=== PATIENT | male | born 1945 | race Caucasian/White ===

== ENCOUNTER → 2019-08-27 10:29 | Outpatient (BNVA) | payer MEDICARE, OTHER, SELFPAY | PROVIDERS: Family Provider Internal Medicine; PCP Internal Medicine; Visit Provider Family Medicine | DX: E78.5 Hyperlipidemia, unspecified (principal); I10 Essential (primary) hypertension; E11.9 Type 2 diabetes mellitus without complications; E03.9 Hypothyroidism, unspecified | CPT/HCPCS: 80053; 80061; 82044; 84443; 85025 ==

== ENCOUNTER → 2019-08-28 14:23 | Outpatient (BNVA) | payer MEDICARE, OTHER, SELFPAY | PROVIDERS: Family Provider Internal Medicine; PCP Internal Medicine; Visit Provider Family Medicine | DX: E78.5 Hyperlipidemia, unspecified (principal); I10 Essential (primary) hypertension; E11.9 Type 2 diabetes mellitus without complications; E03.9 Hypothyroidism, unspecified | CPT/HCPCS: 83036 ==

== ENCOUNTER → 2019-10-16 10:11 | Outpatient (BNVA) | payer MEDICARE, OTHER, SELFPAY | PROVIDERS: Family Provider Family Medicine; PCP Internal Medicine; Visit Provider Family Medicine | DX: I10 Essential (primary) hypertension (principal); N39.3 Stress incontinence (female) (male); R35.0 Frequency of micturition | CPT/HCPCS: 81000 ==

== ENCOUNTER → 2019-11-12 09:34 | Outpatient (BNVA) | payer MEDICARE, OTHER, SELFPAY | PROVIDERS: Family Provider Family Medicine; PCP Internal Medicine; Visit Provider Family Medicine | DX: I10 Essential (primary) hypertension (principal) | CPT/HCPCS: 80048 ==

== ENCOUNTER → 2020-02-26 10:37 | Outpatient (BNVA) | payer MEDICARE, OTHER, SELFPAY | PROVIDERS: Family Provider Family Medicine; PCP Internal Medicine; Visit Provider Family Medicine | DX: E78.5 Hyperlipidemia, unspecified (principal); E03.9 Hypothyroidism, unspecified; I10 Essential (primary) hypertension | CPT/HCPCS: 80053; 80061; 84443; 85025 ==

== ENCOUNTER → 2020-03-08 15:51 | Outpatient (BNVA) | payer MEDICARE, OTHER, SELFPAY | PROVIDERS: Family Provider Family Medicine; PCP Internal Medicine; Visit Provider Family Medicine | DX: Z20.828 Contact with and (suspected) exposure to other viral communicable diseases (principal) | CPT/HCPCS: 87635 ==

== ENCOUNTER → 2020-08-17 10:06 | Outpatient (BNVA) | payer MEDICARE, OTHER, SELFPAY | PROVIDERS: Family Provider Family Medicine; PCP Internal Medicine; Visit Provider Family Medicine | DX: E78.5 Hyperlipidemia, unspecified (principal); E03.9 Hypothyroidism, unspecified; I10 Essential (primary) hypertension; Z68.29 Body mass index [BMI] 29.0-29.9, adult | CPT/HCPCS: 80053; 80061; 81015; 82043; 83721; 84443; 85025 ==

== ENCOUNTER → 2020-10-20 10:59 | Outpatient (BNVA) | payer MEDICARE, OTHER, SELFPAY | PROVIDERS: Family Provider Family Medicine; PCP Family Medicine; Visit Provider Family Medicine | DX: E78.5 Hyperlipidemia, unspecified (principal) | CPT/HCPCS: 80053 ==

== ENCOUNTER → 2020-12-01 11:27 | Outpatient (BNVA) | payer MEDICARE, OTHER, SELFPAY | PROVIDERS: Family Provider Family Medicine; PCP Family Medicine; Visit Provider Family Medicine | DX: E78.5 Hyperlipidemia, unspecified (principal); I10 Essential (primary) hypertension | CPT/HCPCS: 80061 ==

== ENCOUNTER → 2021-02-14 10:08 | Outpatient (BNVA) | payer MEDICARE, OTHER, SELFPAY | PROVIDERS: Family Provider Family Medicine; PCP Family Medicine; Visit Provider Family Medicine | DX: E03.9 Hypothyroidism, unspecified (principal); I10 Essential (primary) hypertension | CPT/HCPCS: 80053; 84439; 84443; 85025 ==

== ENCOUNTER → 2021-08-08 08:47 | Outpatient (BNVA) | payer MEDICARE, OTHER, SELFPAY | PROVIDERS: Family Provider Family Medicine; PCP Family Medicine; Visit Provider Family Medicine | DX: I10 Essential (primary) hypertension (principal); E03.9 Hypothyroidism, unspecified; R35.1 Nocturia; E78.5 Hyperlipidemia, unspecified; M16.0 Bilateral primary osteoarthritis of hip; D18.01 Hemangioma of skin and subcutaneous tissue | CPT/HCPCS: 80053; 84153; 84443 ==

== ENCOUNTER → 2021-08-10 10:50 | Outpatient (BNVA) | payer MEDICARE, OTHER, SELFPAY | PROVIDERS: Family Provider Family Medicine; PCP Family Medicine; Visit Provider Family Medicine | DX: I10 Essential (primary) hypertension (principal); R73.9 Hyperglycemia, unspecified; E03.9 Hypothyroidism, unspecified; R35.1 Nocturia; E78.5 Hyperlipidemia, unspecified; M16.0 Bilateral primary osteoarthritis of hip | CPT/HCPCS: 83036 ==

== ENCOUNTER → 2022-03-08 13:38 | Outpatient (BNVA) | payer MEDICARE, OTHER, SELFPAY | PROVIDERS: Family Provider Family Medicine; PCP Family Medicine; Visit Provider Family Medicine | DX: I10 Essential (primary) hypertension (principal); E78.5 Hyperlipidemia, unspecified; R73.9 Hyperglycemia, unspecified; R35.1 Nocturia; K50.90 Crohn's disease, unspecified, without complications | CPT/HCPCS: 80053; 80061; 83036; 84153; 84443; 85025 ==

== ENCOUNTER → 2022-07-03 10:39 | Outpatient (BNVA) | payer MEDICARE, OTHER, SELFPAY | PROVIDERS: Family Provider Family Medicine; PCP Family Medicine; Visit Provider Surgery | DX: K62.5 Hemorrhage of anus and rectum (principal); K50.90 Crohn's disease, unspecified, without complications; K52.9 Noninfective gastroenteritis and colitis, unspecified | CPT/HCPCS: 99203 ==

== ENCOUNTER 2022-08-14 14:20 | Emergency (ER) | payer MEDICARE, OTHER, SELFPAY ==
[2022-08-14 14:58] VITALS: BP 174/94; PULSE 70; RESP 20; TEMP 36.5; O2SAT 98; BMI 27.2
--- NOTE | 2022-08-14 15:01 | ECG_ITS ---
[facility] Test Date: 2022-08-14 Pat Name: Esequiel Kinney Department: Room: Gender: Male Erisa Attorney: : 1945 Requested By: Sulaiman Pike Order Number: [id number] Reuben MD: Patel Montilla M.D. Measurements Intervals [place] Rate: 67 P: 55 CA: 153 QRS: 42 QRSD: 106 T: 34 QT: 415 QTc: 441 Interpretive Statements SINUS RHYTHM NONSPECIFIC T-WAVE ABNORMALITY No previous ECG available for comparison Electronically Signed On 08-14-2022 17:33:09 TRACK HELPER by Patel Montilla M.D. [id number]
[2022-08-14 16:19] VITALS: BP 159/85; PULSE 72; RESP 20; O2SAT 98
--- NOTE | 2022-08-14 18:12 | USR_ITS ---
PROCEDURE INFORMATION: Exam: US Scrotum Exam date and time: 08/14/2022 6:41 PM Age: 77 years old Clinical indication: Other: Patient has a nasty red groin rash, which he says he gets about three times per year. He states that he has noticed painless bilateral scrotal swelling x 2 weeks. TECHNIQUE: Imaging protocol: Real-time ultrasound of the scrotum and contents with color Doppler and image documentation. COMPARISON: No relevant prior studies available. FINDINGS: Right testicle: 3.3 x 2.3 x 2.8 cm with normal blood flow. Left testicle: 3.2 x 2.4 x 2.9 cm with normal blood flow. Epididymides: Normal. Scrotum/soft tissues: Small bilateral hydroceles. Small left varicocele. Suspected skin thickening or edema. US/US scrotum [id number] IMPRESSION: 1. Normal testicles. 2. Small hydroceles. 3. Small left varicocele.
--- NOTE | 2022-08-14 18:13 | XRR_ITS ---
PROCEDURE INFORMATION: Exam: XR Chest Exam date and time: 08/14/2022 6:31 PM Age: 77 years old Clinical indication: Patient HX: Shortness of breath; Chest pain; Additional info: SOB TECHNIQUE: Imaging protocol: Radiologic exam of the chest. Views: 1 view. COMPARISON: CR XR chest 2V* [id number] 04/08/2017 1:04 PM FINDINGS: Lungs: Unremarkable. No consolidation. Pleural spaces: Unremarkable. No pleural effusion. No pneumothorax. Heart/Mediastinum: Unremarkable. No cardiomegaly. Bones/joints: Unremarkable. Soft tissues: Bilateral skin folds. XR/XR chest 1V portable [id number] IMPRESSION: No acute findings.
[2022-08-14 18:24] LABS: Basophils % 0.4 %; Eosinophils % 0.2 %; Hematocrit 34.4 % (42.0-52.0); Hemoglobin 11.1 g/dL (11.7-16.6); Lymphocytes # 2.7 10^3/uL (0.8-4.8); Lymphocytes % 28.1 %; Mean Corpuscular HGB Conc 32.3 g/dL (30.0-36.0); Mean Corpuscular Hemoglobin 26.7 pg (28.0-34.0); Mean Corpuscular Volume 82.9 fl (80-94); Mean Platelet Volume 8.6 fL (7.4-10.4); Monocytes # 0.4 10^3/uL (0.2-0.9); Monocytes % 4.6 %; Neutrophils # 6.27 10^3/uL (1.8-7.7); Neutrophils % 66.4 %; Nucleated Red Blood Cells % 0 %; Platelet Count 298 10^3/cmm (130-400); Red Blood Count 4.15 10^6/uL (4.1-5.3); Red Cell Distribution Width 16.7 % (12.1-15.1); White Blood Count 9.5 10^3/uL (4.0-10.0)
--- NOTE | 2022-08-14 18:24 | W.ED.GENADLT ---
HPI - General Adult General: Chief complaint: General Medical Stated complaint: states fluid retention/Lambert sent Time Seen by Provider: 08/14/22 18:02 Source: patient Mode of arrival: ambulatory Limitations: no limitations History of Present Illness: 70-year-old male states that he has been having fluid retention in his legs he is also had swelling to his penis and scrotum with fluid states he has been having over the last few weeks he states has been having some shortness of breath he seen his PCP today with sent him here for evaluation of new onset CHF he states he used to take a water pill in the past but no longer does. He denies any pain denies any fevers. Associated symptoms: Reports dyspnea; Deny chest pain, headache(s), nausea, rash or vomiting Review of Systems Const: Denies: fever(s), chills, body aches or change in appetite Eyes: Denies: blurry vision or eye discomfort ENMT: Denies: throat pain or dental pain Card: Denies: chest pain Resp: Reports: dyspnea GI: Denies: abdominal pain, nausea, vomiting or diarrhea : Denies: dysuria Musc: Reports: extremity swelling Skin/Breast: Denies: rash Neuro: Denies: headache(s) Psych: Denies: depression Ed/Lymph: Denies: easy bruising All/Imm: Denies: urticaria PFSH ED PFSH: Medical History Crohn's disease Dyslipidemia Essential (primary) hypertension Gout History of amputation of toe Hypothyroid Mitral valve prolapse, nonrheumatic DRISS (obstructive sleep apnea) Primary osteoarthritis of both hips Surgical History H/O hernia repair History of elbow surgery History of tonsillectomy Hx of colonoscopy with polypectomy Family History Other CAD (coronary artery disease) Cancer Social History Smoking and tobacco status: never smoked Alcohol intake: never Physical Exam Const: COMMON NORMALS: no acute distress, patient oriented x3 and healthy appearing HENMT: COMMON NORMALS: normocephalic and atraumatic HEAD & SCALP: normocephalic and atraumatic Eye: COMMON NORMALS: Equal, round and reactive pupils present and EOMs intact bilaterally PUPIL: Yes Equal, round and reactive pupils present Neck/C-Spine: COMMON NORMALS: full ROM and supple Chest: COMMONS NORMALS: normal inspection of the chest and normal palpation of entire chest wall Resp: COMMON NORMALS: normal respiratory effort, No retractions, No use of accessory muscles and clear to auscultation bilaterally AUSCULTATION: clear to auscultation bilaterally Cardio: COMMON NORMALS: regular rate, regular rhythm and No murmurs present (Cardio) RATE: regular rate RHYTHM: regular rhythm GI: COMMON NORMALS: Normal to inspection, nondistended, normoactive bowel sounds present, Soft to palpation, non-tender and no masses PALPATION: Yes Soft to palpation : OTHER: scrotal and penile swelling and edema Extremity: COMMON NORMALS: full ROM NARRATIVE EXTREMITY EXAM: 2+ edema to le Neuro: COMMON NORMALS: patient oriented x3, moves all extremities and no focal motor deficits Psych: COMMON NORMALS: mental status grossly normal, Normal thought process present and cooperative THOUGHT PROCESS: Normal thought process present Skin: COMMON NORMALS: no rashes or lesions noted and no wounds GENERAL SKIN EXAM: no rashes or lesions noted Course Vital Signs: Vital signs: Vital Signs Temperature 97.7 F 08/14/22 14:58 Pulse Rate 72 08/14/22 16:19 Respiratory Rate 20 H 08/14/22 16:19 Blood Pressure 159/85 08/14/22 16:19 Pulse Oximetry 98 08/14/22 16:19 Oxygen Delivery Me thod 08/14/22 16:19 [facility] - General Adult Medical Decision Making Patient presents with lower extremity edema his BNP is elevated he has no signs of pulm edema he is in no respiratory distress given Lasix here he is diuresing well here spoke to him and his PCP has an appoint with her next Saturday we will start him on Lasix and he is to follow-up Saturday scheduled he is return if he has any worsening he understands and agrees to plan. Lab Data 08/14/22 17:41 08/14/22 17:41 Radiology Impressions Scrotum Ultrasound 08/14/22 18:12 IMPRESSION: 1. Normal testicles. 2. Small hydroceles. 3. Small left varicocele. Chest X-Ray 08/14/22 18:13 IMPRESSION: No acute findings. Laboratory Results WBC 9.5 10^3/uL (4.0-10.0) 08/14/22 17: RBC 4.15 10^6/uL (4.1-5.3) 08/14/22 17:41 Hgb 11.1 g/dL (11.7-16.6) L 08/14/22 17:41 Hct 34.4 % (42.0-52.0) L 08/14/22 17:41 MCV 82.9 fl (80-94) 08/14/22 17:41 MCH 26.7 pg (28.0-34.0) L 08/14/22 17: MCHC 32.3 g/dL (30.0-36.0) 08/14/22 17:41 RDW 16.7 % (12.1-15.1) H 08/14/22 17:41 Plt Count 298 10^3/cmm (130-400) 08/14/22 17:41 MPV 8.6 fL (7.4-10.4) 08/14/22 17:41 Neut % (Auto) 66.4 % 08/14/22 17:41 Lymph % (Auto) 28.1 % 08/14/22 17:41 Kendall % (Auto) 4.6 % 08/14/22 17:41 Eos % (Auto) 0.2 % 08/14/22 17:41 Baso % (Auto) 0.4 % 08/14/22 17:41 Neut # (Auto) 6.27 10^3/uL (1.8-7.7) 08/14/22 17:41 Lymph # (Auto) 2.7 10^3/uL (0.8-4.8) 08/14/22 17:41 Kendall # (Auto) 0.4 10^3/uL (0.2-0.9) 08/14/22 17: Eos # (Auto) 0.0 10^3/uL (0.0-0.8) 08/14/22 17:41 Baso # (Auto) 0.0 10^3/uL (0.0-0.1) 08/14/22 17:41 Nucleated RBC % (auto) 0 % 08/14/22 17:41 Nucleated RBCs # 0.0 /100WBC 08/14/22 17:41 PT 15.00 SECONDS (12.1-14.9) H 08/14/22 17:41 INR 1.14 (0.8-1.2) 08/14/22 17:41 Sodium 139 mmol/L (136-145) 08/14/22 17:41 Potassium 3.9 mmol/L (3.5-5.1) 08/14/22 17:41 Chloride 102 mmol/L (98-107) 08/14/22 17:41 Carbon Dioxide 24 mmol/L (22-29) 08/14/22 17:41 Anion Gap 16.9 (5-19) 08/14/22 17:41 BUN 9 mg/dL (8-23) 08/14/22 17:41 Creatinine 0.7 mg/dL (0.7-1.2) 08/14/22 17:41 GFR Calculation Not Reportable 08/14/22 17:41 Glucose 119 mg/dL (65-115) H 08/14/22 17:41 Calculated Osmolality 288 mOsm/kg (285-295) 08/14/22 17:41 Calcium 9.9 mg/dL (8.5-10.5) 08/14/22 17:41 Total Bilirubin 1.0 mg/dL (0.15-1.2) 08/14/22 17:41 AST 28 U/L (0-40) 08/14/22 17:41 ALT 22 U/L (0-41) 08/14/22 17:41 Alkaline Phosphatase 96 U/L (40-130) 08/14/22 17:41 NT-Pro-B Natriuret Pep 1342 pg/mL (0-450) H 08/14/22 17:41 Total Protein 7.4 g/dL (6.6-8.7) 08/14/22 17:41 Albumin 3.6 g/dL (3.5-5.2) 08/14/22 17:41 Globulin 3.8 g/dL (1.3-4.6) 08/14/22 17:41 EKG Data EKG 1: I personally reviewed and interpreted this EKG as follows: EKG interpretation date: 08/14/22 EKG interpretation time: 19:26 Interpretation: nsr hr [address] or t wave abnormalities qrs 106 qtc 427 Computer generated interpretation: Scrotum Ultrasound 08/14/22 18:12 IMPRESSION: 1. Normal testicles. 2. Small hydroceles. 3. Small left varicocele. Chest X-Ray 08/14/22 18:13 IMPRESSION: No acute findings. Discharge Plan Discharge Patient Disposition: Home Clinical Impression: Bilateral lower extremity edema, Scrotal swelling Condition: Stable Prescriptions: New Lasix 40 mg tablet 40 mg PO DAILY Qty: 30 0RF No Action acetaminophen [Tylenol Extra Strength] 500 mg tablet 500 mg PO Q6H PRN mesalamine [Delzicol] 400 mg capsule (with del rel tablets) 800 mg PO BID Qty: 360 1RF meloxicam 7.5 mg tablet 7.5 mg PO DAILY Qty: 90 1RF rosuvastatin [Crestor] 40 mg tablet 40 mg PO DAILY 90 Days Qty: 90 1RF lisinopril 30 mg tablet 30 mg PO BID Qty: 180 1RF metoprolol succinate 100 mg tablet extended release 24 hr See Rx Instructions .ROUTE .COMPLEX Qty: 90 1RF Dose Instruction: TAKE 1 TABLET DAILY Rx Instructions: TAKE 1 TABLET DAILY allopurinol 300 mg tablet 300 mg PO DAILY Qty: 90 3RF fenofibrate nanocrystallized 145 mg tablet 145 mg PO DAILY Qty: 90 1RF levothyroxine 50 mcg capsule 50 mcg PO DAILY Qty: 90 1RF nystatin 100,000 unit/gram powder 1 applic TOPICAL DAILY Qty: 3 2RF amlodipine 5 mg tablet 5 mg PO BID Qty: 180 1RF Discharge Orders: Discharge ED (Routine); Ordered 08/14/22 Ordered By: Christina Kendall Referrals: Blanka Hu DO [Primary Care Provider] - 1-3 days Discharge Diet: Advance as tolerated Discharge Activity: Resume usual activity Patient Instructions: Leg Edema (ED) Coding Level of Care Code ED Casing In Line Setter for Marko Ravi
--- NOTE | 2022-08-14 18:27 | PC.NURSE ---
PT PLACED ON CONTINUOUS SPO2, NIBP, AND CM.
[2022-08-14] MEDS: FUROsemide 10 mg/mL SDV 10mL 60 MG IVP (18:28)
[2022-08-14 18:35] LABS: INR 1.14 (0.8-1.2)
[2022-08-14 18:52] LABS: Alanine Aminotransferase 22 U/L (0-41); Albumin Level 3.6 g/dL (3.5-5.2); Alkaline Phosphatase 96 U/L (40-130); Anion Gap 16.9 (5-19); Aspartate Amino Transferase 28 U/L (0-40); Blood Urea Nitrogen 9 mg/dL (8-23); Calcium 9.9 mg/dL (8.5-10.5); Carbon Dioxide 24 mmol/L (22-29); Chloride 102 mmol/L (98-107); Globulin 3.8 g/dL (1.3-4.6); Glucose 119 mg/dL (65-115); NT Pro B Type Natriuretic Pept 1342 pg/mL (0-450); Osmolality Calculated 288 mOsm/kg (285-295); Potassium 3.9 mmol/L (3.5-5.1); Sodium 139 mmol/L (136-145); Total Protein 7.4 g/dL (6.6-8.7)
--- NOTE | 2022-08-14 18:56 | PC.NURSE ---
REPORT GIVEN TO NINO Connolly RN ASSUMED CARE.
--- NOTE | 2022-08-14 19:26 | ECG_ITS ---
[facility] Test Date: 2022-08-14 Pat Name: Esequiel Kinney Department: Room: Gender: Male Teaching Specialists: : 1945 Requested By: Christina Kendall Order Number: [id number] Reuben MD: Patel Montilla M.D. Measurements Intervals [place] Rate: 68 P: 46 WV: 134 QRS: 20 QRSD: 106 T: 4 QT: 410 QTc: 438 Interpretive Statements SINUS RHYTHM WITH OCCASIONAL SUPRAVENTRICULAR PREMATURE COMPLEXES NONSPECIFIC T-WAVE ABNORMALITY Compared to ECG 08/14/2022 14:57:36 No significant changes Electronically Signed On 08-15-2022 10:27:12 SHEET METAL APPRENTICE by Patel Montilla M.D. [email or web address]
[2022-08-14 20:14] VITALS: BP 154/97; PULSE 68; RESP 19; O2SAT 100
== END 2022-08-14 20:15 | disposition home or self-care (01) ==
PROVIDERS: Emergency Provider Emergency Medicine; PCP Family Medicine
DX: R60.0 Localized edema (principal); N50.89 Other specified disorders of the male genital organs; N43.3 Hydrocele, unspecified; I86.1 Scrotal varices; E78.5 Hyperlipidemia, unspecified; I10 Essential (primary) hypertension
CPT/HCPCS: 71045; 76870; 80053; 83880; 85025; 85610; 93005; 96374; 99285; J1940

== ENCOUNTER → 2022-08-27 12:35 | Outpatient (BNVA) | payer MEDICARE, OTHER, SELFPAY | PROVIDERS: PCP Family Medicine; Visit Provider Family Medicine | DX: R60.0 Localized edema (principal) | CPT/HCPCS: 80053; 85025 ==

== ENCOUNTER 2022-09-21 14:27 | Outpatient (CLI) | payer MEDICARE, OTHER, SELFPAY ==
--- NOTE | 2022-09-21 15:00 | USCV_ITS ---
Esequiel Kinney Age: 77 Gender: M : 1945 Exam Date: 09/21/2022 15:03 Ordering Phys: Blanka Hu DO Technologist: Exam Location: [facility] – [place], [place] Indication: pedal edema BP: 156 / 64 HR: 70 Rhythm: Sinus Technical Quality: MEASUREMENTS (Male / Female) Normal Values 2D ECHO LV Diastolic Diameter PLAX 4.7 cm 4.2 - 5.9 / 3.9 - 5.3 cm LV Systolic Diameter PLAX 3.0 cm IVS Diastolic Thickness 1.2 cm 0.6 - 1.0 / 0.6 - 0.9 cm IVS Systolic Thickness 1.7 cm LVPW Diastolic Thickness 1.4 cm 0.6 - 1.0 / 0.6 - 0.9 cm LVPW Systolic Thickness 1.6 cm LVOT Diameter 2.1 cm LV Ejection Fraction 2D Teich 65.4 % LV Ejection Fraction MOD 2C 77.5 % LV Ejection Fraction 2C AL 77.2 % LA Diameter 4.0 cm Aorta at Sinotubular Diameter 3.0 cm IVC Diameter 1.1 cm M-MODE Aortic Annulus Diameter 3.6 cm LA Ao Ratio MM 1.3 MV E Point Septal Separation 1.3 cm DOPPLER AV Peak Velocity 206.0 cm/s LVOT Peak Velocity 121.0 cm/s AV Area Cont Eq vti 2.4 cm squared AV Area Cont Eq pk 2.1 cm squared MV Area PHT 5.0 cm squared Mitral E to A Ratio 1.2 MV E' Velocity 61.5 cm/s Mitral E to MV E' Ratio 12.2 Mitral E to LV E' Lateral Ratio 10.2 Mitral E to LV E' Septal Ratio 15.2 TR Peak Velocity 297.0 cm/s TR Peak Gradient 35.3 mmHg TV Peak E Velocity 117.0 cm/s Right Atrial Pressure 3.0 mmHg Pulmonary Artery Systolic Pressu 38.3 mmHg RV Acceleration Time 0.1 s FINDINGS Left Ventricle Normal left ventricular size and systolic function, EF 77 %. Mild left ventricular hypertrophy. No regional wall motion abnormalities. Grade III/IV diastolic dysfunction (restrictive filling pattern), severely elevated filling pressures. Right Ventricle The right ventricle is normal in size and function. Right Atrium The right atrium is normal in size. Left Atrium The left atrium is normal in size. Mitral Valve Thickened mitral valve. Aortic Valve Thickened aortic valve. Aortic valve sclerosis. Tricuspid Valve Mild tricuspid valve regurgitation. Estimated pulmonary artery peak systolic pressure 38 mmHg Pulmonic Valve No gross abnormalities noted Pericardium Normal pericardium without effusion. Aorta Normal ascending aorta dimension. IVC The inferior vena cava appears normal. CONCLUSIONS Normal left ventricular size and systolic function, EF 77 %. Mild left ventricular hypertrophy. No regional wall motion abnormalities. Grade III/IV diastolic dysfunction (restrictive filling pattern), severely elevated filling pressures. Mild mitral and tricuspid regurgitation Thickened mitral valve. Features of aortic valve sclerosis There is no pericardial effusion. There are no intracardiac masses. Compared to the study from 04/06/2019 the left ventricular diastolic dysfunction appears to be new Dr Sumaya Figueroa MD FACC (Electronically Signed) Final Date: 21 September 2022 16:50 S
== END 2022-09-21 14:28 | disposition home or self-care (01) ==
LOC: RAD 14:28
PROVIDERS: PCP Family Medicine; Visit Provider Family Medicine
DX: R60.0 Localized edema (principal); I08.3 Combined rheumatic disorders of mitral, aortic and tricuspid valves
CPT/HCPCS: 93306

== ENCOUNTER → 2022-09-25 11:52 | Outpatient (BNVA) | payer MEDICARE, OTHER, SELFPAY | PROVIDERS: PCP Family Medicine; Visit Provider Family Medicine | DX: I50.30 Unspecified diastolic (congestive) heart failure (principal) | CPT/HCPCS: 80048 ==

== ENCOUNTER → 2022-10-03 09:31 | Outpatient (BNVA) | payer MEDICARE, OTHER, SELFPAY | PROVIDERS: PCP Family Medicine; Visit Provider Family Medicine | DX: E87.6 Hypokalemia (principal) | CPT/HCPCS: 80048 ==

== ENCOUNTER 2022-10-17 12:05 | Inpatient (IN) | payer MEDICARE, OTHER, SELFPAY ==
[2022-10-17] VITALS (9 sets, daily range): BP systolic 102–126; BP diastolic 62–80; PULSE 97–105; RESP 18; TEMP 36.6; O2SAT 96–100; BMI 24.4
--- NOTE | 2022-10-17 13:26 | XR_ITS ---
WS: [id number] Exam: XR chest 1V portable [id number] Date/Time of Exam: 10/17/2022 1:39 PM Reason For Exam: edema Comparison 08/14/2022. The lungs are clear and fully expanded. No pleural effusions. Normal cardiomediastinal silhouette. [place] structures are intact. Degenerative changes of the T-spine and left shoulder. XR/XR chest 1V portable [id number] IMPRESSION: 1. No acute cardiopulmonary finding.
--- NOTE | 2022-10-17 13:29 | ED_ITS ---
HPI - Extremity Problem General: Chief complaint: Extremity Problem,Nontraumatic Stated complaint: PITTING EDEMA/ PAIN Time Seen by Provider: 10/17/22 12:56 Source: patient and family Mode of arrival: EMS Limitations: no limitations History of Present Illness: This patient returns to the emergency department because of lower extremity edema. He states this is similar to episode he had approximately a month ago in which he was given additional Lasix and his symptoms resolved. He denies any chest pain. He states that because of the edema he feels like he has more discomfort and pain in his lower extremities. He denies any fevers or chills. He apparently lives alone and his daughter who is here with him has been coming more frequently over the past couple weeks because his ability to do his ADLs has been compromised due to his lower extremity edema. He wears a depends and states that his depends of had significant amount of urine in them and has been taking the Lasix as prescribed. He also relates that he lost his approximately a month or so ago but he does not feel depressed or sad. He states his appetite has decreased due to his inability to get up and fix his meals because of his edema. MD Complaint: extremity swelling Associated symptoms: Deny chest pain, fever(s) or rash Review of Systems Const: Reports: fatigue; Denies: fever(s) or chills Eyes: Denies: change in vision ENMT: Denies: throat pain, odynophagia, nasal discharge or nasal congestion Card: Reports: edema; Denies: chest pain or palpitations Resp: Denies: dyspnea, productive cough or non-productive cough GI: Denies: abdominal pain, nausea or vomiting : Denies: flank pain, difficulty urinating or dysuria Musc: Reports: extremity pain and extremity swelling; Denies: neck pain or back pain Skin/Breast: Denies: rash or pruritus Neuro: Denies: headache(s), numbness in extremities or weakness in extremities PFSH ED PFSH: Medical History Crohn's disease Dyslipidemia Essential (primary) hypertension Gout History of amputation of toe Hypothyroid Mitral valve prolapse, nonrheumatic DRISS (obstructive sleep apnea) Primary osteoarthritis of both hips Surgical History H/O hernia repair History of elbow surgery History of tonsillectomy Hx of colonoscopy with polypectomy Family History Other CAD (coronary artery disease) Cancer Social History Smoking and tobacco status: never smoked Alcohol intake: never Substance/Drug Use: never Physical Exam Narrative: EXAM NARRATIVE: The patient is alert. He appears somewhat pale but in no acute distress and able to answer questions in an appropriate goal-directed fashion. Const: COMMON NORMALS: no acute distress, patient oriented x3 and no limitations NUTRITIONAL APPEARANCE: thin ORIENTATION/CONSCIOUSNESS: Yes awake HENMT: COMMON NORMALS: normocephalic, Normal nasal mucous membranes and turbinates present, moist oral mucous membranes and oropharynx normal HEAD & SCALP: normocephalic FACE & SINUS: normal facial exam NOSE: Normal nasal mucous membranes and turbinates present Eye: COMMON NORMALS: Equal, round and reactive pupils present, EOMs intact bilaterally and conjunctivae normal CONJUNCTIVA: Yes conjunctivae normal PUPIL: Yes Equal, round and reactive pupils present Neck/C-Spine: COMMON NORMALS: full ROM, no lymphadenopathy, no JVD and Thyroid normal THYROID: Thyroid normal Chest: COMMONS NORMALS: normal inspection of the chest and normal palpation of entire chest wall Resp: COMMON NORMALS: normal respiratory effort and No retractions AUSCULTATION: diminished lung sounds Cardio: COMMON NORMALS: no JVD, regular rate, regular rhythm, No murmurs present (Cardio) and Peripheral pulses 2+ throughout RATE: regular rate RHYTHM: regular rhythm PERIPHERAL PULSES: Peripheral pulses 2+ throughout GI: COMMON NORMALS: Normal to inspection, nondistended, normoactive bowel sounds present, Soft to palpation and non-tender PALPATION: Yes Soft to palpation : SCROTUM: Yes other (Scrotal edema) Back/Pelvis: COMMON NORMALS: thoracic and lumbar spine normal to inspection, no thoracic nor lumbar tenderness and thoraco-lumbar ROM normal Extremity: COMMON NORMALS: no calf tenderness NARRATIVE EXTREMITY EXAM: Bilateral pitting edema up to mid to upper thigh. No erythema, skin rashes etc. no deformity. No joint enlargement. Neuro: COMMON NORMALS: patient oriented x3, moves all extremities and no focal motor deficits CRANIAL NERVES: Yes CN normal except as noted Course Reevaluation(s): Reevaluation #1: The patient remains clinically stable without any changes in his condition. I discussed current findings with him and also revisited all his history. He states he has been taking the medications as prescribed. He again denies any black tarry stools, blood in his stools etc. Time: 14:45 Consultations: Consultation #1: Discussed current findings with Dr. Medina attending hospitalist who agreed to admit the patient for further work-up and consultation as indicated. Time: 14:45 Vital Signs: Vital signs: Vital Signs Pulse Rate 103 H 10/17/22 13:53 Blood Pressure 111/67 10/17/22 13:53 Pulse Oximetry 99 10/17/22 13:53 Oxygen Delivery Me thod Nasal Cannula 10/17/22 13:53 Oxygen Flow Rate 2 10/17/22 13:53 MDM - Extremity (Nontraumatic) Medical Decision Making This patient with history of lower extremity edema noted in a prior emergency department visit and with also prior echocardiogram which revealed some jarrett stolic dysfunction presents to our emergency department with increasing lower extremity edema and fatigue. His clinical examination confirmed pitting edema of the bilateral lower extremities and scrotum. He did not have any evidence of respiratory distress or other significant cardiopulmonary clinical findings at this time. Subsequently work-up was engaged to evaluate kidney function, cardiac biomarkers etc. Of note is that his creatinine was significant elevated today versus prior creatinines available within this record. He also had evidence of worsening anemia without clear etiology. The patient has acute kidney injury of unclear etiology although he does take a number of medications which could be a contributing factor. His potassium is 5.2 and his EKG does not reveal any concerning changes at this time. The patient will be admitted to this facility for continued work-up consultation is indicated and treatment. Medical Records I reviewed the patient's medical records. Prior laboratories reviewed revealed a normal creatinine earlier in September. Lab Data I reviewed the patient's lab results. 10/17/22 13:09 10/17/22 13:09 Radiology Impressions Chest X-Ray 10/17/22 13:26 IMPRESSION: 1. No acute cardiopulmonary finding. Laboratory Results WBC 11.2 10^3/uL (4.0-10.0) H 10/17/22 13:09 RBC 2.95 10^6/uL (4.1-5.3) L 10/17/22 13:09 Hgb 7.0 g/dL (11.7-16.6) L 10/17/22 13:09 Hct 22.7 % (42.0-52.0) L 10/17/22 13:09 MCV 76.9 fl (80-94) L 10/17/22 13:09 MCH 23.7 pg (28.0-34.0) L 10/17/22 13:09 MCHC 30.8 g/dL (30.0-36.0) 10/17/22 13:09 RDW 17.8 % (12.1-15.1) H 10/17/22 13:09 Plt Count 167 10^3/cmm (130-400) 10/17/22 13:09 MPV 8.6 fL (7.4-10.4) 10/17/22 13:09 Neut % (Auto) 90.4 % 10/17/22 13:09 Lymph % (Auto) 3.7 % 10/17/22 13:09 [place] % (Auto) 4.6 % 10/17/22 13:09 Eos % (Auto) 0.0 % 10/17/22 13:09 Baso % (Auto) 0.1 % 10/17/22 13:09 Neut # (Auto) 10.10 10^3/uL (1.8-7.7) H 10/17/22 13:09 Lymph # (Auto) 0.4 10^3/uL (0.8-4.8) L 10/17/22 13:09 [place] # (Auto) 0.5 10^3/uL (0.2-0.9) 10/17/22 13:09 Eos # (Auto) 0.0 10^3/uL (0.0-0.8) 10/17/22 13:09 Baso # (Auto) 0.0 10^3/uL (0.0-0.1) 10/17/22 13:09 Nucleated RBC % (auto) 0 % 10/17/22 13:09 Nucleated RBCs # 0.0 /100WBC 10/17/22 13:09 Sodium 128 mmol/L (136-145) L 10/17/22 13:09 Potassium 5.2 mmol/L (3.5-5.1) H 10/17/22 13:09 Chloride 93 mmol/L (98-107) L 10/17/22 13:09 Carbon Dioxide 15 mmol/L (22-29) L 10/17/22 13:09 Anion Gap 25.2 (5-19) H 10/17/22 13:09 BUN 75 mg/dL (8-23) H 10/17/22 13:09 Creatinine 8.0 mg/dL (0.7-1.2) H* 10/17/22 13:09 GFR Calculation Not Reportable 10/17/22 13:09 Glucose 98 mg/dL (65-115) 10/17/22 13:09 Calculated Osmolality 288 mOsm/kg (285-295) 10/17/22 13:09 Calcium 7.9 mg/dL (8.5-10.5) L 10/17/22 13:09 Total Bilirubin 0.3 mg/dL (0.15-1.2) 10/17/22 13:09 AST 13 U/L (0-40) 10/17/22 13:09 ALT 10 U/L (0-41) 10/17/22 13:09 Alkaline Phosphatase 81 U/L (40-130) 10/17/22 13:09 Troponin T Gen 5 ng/L 35 ng/L (0-15) H 10/17/22 13:09 NT-Pro-B Natriuret Pep 2626 pg/mL (0-450) H 10/17/22 13:09 Total Protein 6.0 g/dL (6.6-8.7) L 10/17/22 13:09 Albumin 2.7 g/dL (3.5-5.2) L 10/17/22 13:09 Globulin 3.3 g/dL (1.3-4.6) 10/17/22 13:09 EKG Data EKG 1: I personally reviewed and interpreted this EKG as follows: Interpretation: Contemporaneous review of resting EKG reveals a ventricular rate of 105 bpm. Normal AL interval, QRS duration, corrected QT interval. He has some nonspecific ST-T wave changes noted in the lateral leads but no acute ischemic changes noted. Discharge Plan Discharge Patient Disposition: Admitted As Inpatient Clinical Impression: Acute kidney injury, Anemia, Diastolic dysfunction Condition: Stable Prescriptions: No Action acetaminophen [Tylenol Extra Strength] 500 mg tablet 500 mg PO Q6H PRN (Reason: Pain) rosuvastatin [Crestor] 40 mg tablet 40 mg PO DAILY 90 Days Qty: 90 1RF lisinopril 30 mg tablet 30 mg PO BID Qty: 180 1RF allopurinol 300 mg tablet 300 mg PO DAILY Qty: 90 3RF fenofibrate nanocrystallized 145 mg tablet 145 mg PO DAILY Qty: 90 1RF nystatin 100,000 unit/gram powder 1 applic TOPICAL DAILY Qty: 3 2RF amlodipine 5 mg tablet 5 mg PO BID Qty: 180 1RF mesalamine [Delzicol] 400 mg capsule (with del rel tablets) 800 mg PO BID Qty: 360 1RF meloxicam 7.5 mg tablet 7.5 mg PO DAILY Qty: 90 1RF potassium chloride [Klor-Con M20] 20 mEq tablet,ER particles/crystals 40 meq PO BID 30 Days Qty: 120 0RF Lasix 40 mg tablet 40 mg PO BID Qty: 60 0RF levothyroxine 50 mcg capsule 50 mcg PO DAILY Qty: 90 1RF metoprolol succinate 100 mg tablet extended release 24 hr 100 mg PO DAILY Referrals: Harris Nugent MD [Primary Care Provider] - Coding Level of Care Code ED [facility] Administrator for Marko Ravi
[2022-10-17] MEDS: FUROsemide 10 mg/mL SDV 4mL 40 MG IVP (13:51)
[2022-10-17 13:55] LABS: Basophils % 0.1 %; Hematocrit 22.7 % (42.0-52.0); Lymphocytes # 0.4 10^3/uL (0.8-4.8); Lymphocytes % 3.7 %; Mean Corpuscular HGB Conc 30.8 g/dL (30.0-36.0); Mean Corpuscular Hemoglobin 23.7 pg (28.0-34.0); Mean Corpuscular Volume 76.9 fl (80-94); Mean Platelet Volume 8.6 fL (7.4-10.4); Monocytes # 0.5 10^3/uL (0.2-0.9); Monocytes % 4.6 %; Neutrophils % 90.4 %; Nucleated Red Blood Cells % 0 %; Platelet Count 167 10^3/cmm (130-400); Red Blood Count 2.95 10^6/uL (4.1-5.3); Red Cell Distribution Width 17.8 % (12.1-15.1); White Blood Count 11.2 10^3/uL (4.0-10.0)
--- NOTE | 2022-10-17 13:58 | ECG_ITS ---
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 Measurements Intervals [place] Rate: 105 P: 100 AL: 172 QRS: 31 QRSD: 109 T: 24 QT: 327 QTc: 434 Interpretive Statements SINUS TACHYCARDIA LOW QRS VOLTAGE IN PRECORDIAL LEADS [QRS DEFLECTION < 1.0 mV IN CHEST LEADS] POSSIBLE INFERIOR MYOCARDIAL INFARCTION , PROBABLY OLD [30 ms Q WAVE IN II/aVF] Compared to ECG 08/14/2022 19:26:48 Low QRS voltage now present Myocardial infarct finding now present Sinus rhythm no longer present T-wave abnormality no longer present Electronically Signed On 10-17-2022 16:27:06 CDT by Patel Montilla M.D. [id number]
[2022-10-17 14:19] LABS: Troponin T (5th) Once 35 ng/L (0-15)
[2022-10-17 14:29] LABS: Alanine Aminotransferase 10 U/L (0-41); Albumin Level 2.7 g/dL (3.5-5.2); Alkaline Phosphatase 81 U/L (40-130); Anion Gap 25.2 (5-19); Aspartate Amino Transferase 13 U/L (0-40); Blood Urea Nitrogen 75 mg/dL (8-23); Calcium 7.9 mg/dL (8.5-10.5); Carbon Dioxide 15 mmol/L (22-29); Chloride 93 mmol/L (98-107); Globulin 3.3 g/dL (1.3-4.6); Glucose 98 mg/dL (65-115); NT Pro B Type Natriuretic Pept 2626 pg/mL (0-450); Osmolality Calculated 288 mOsm/kg (285-295); Potassium 5.2 mmol/L (3.5-5.1); Sodium 128 mmol/L (136-145); Total Bilirubin 0.3 mg/dL (0.15-1.2)
--- NOTE | 2022-10-17 14:50 | P.HP_ITS ---
Providers/Chief Complaint Primary Care Provider: Harris Nugent MD Chief Complaint: PITTING EDEMA/ PAIN History of Present Illness Esequiel Kinney is a 77 year old male with a past medical history significant for anemia, diastolic heart failure, basal cell adenocarcinoma, gout, crohn's disease, osteoarthritis, obstructive sleep apnea, hypothyroidism, hypertension, and dyslipidemia who presents to the emergency department with severe lower extremity edema. Patient reports symptoms began a couple months ago. Reports initially was started on Lasix and the dose was adjusted about a month ago. He reports despite this edema continued to get worse. He reports the edema is now up to his abdomen. He endorses associated symptoms of scrotal swelling and abdominal hardness. He also reports a productive cough which started today. He reports exertion worsens the symptoms. He states he has not been able to walk for about a week or so. He attributes this to the weight in his legs. He denies any chest pain, nausea, fevers or chills. Of note, patient reports he lives alone. His daughter who lives in [place] is present and supportive in the ED. Review of Systems Narrative: A complete review of systems was obtained and is negative except as stated in HPI. Medications/Allergies Home Medications Medication Instructions Recorded Confirmed Last Taken Type acetaminophen 500 mg tablet 500 mg PO Q6H PRN Pain 02/14/21 10/17/22 Unknown History (Tylenol Extra Strength) allopurinol 300 mg tablet 300 mg PO DAILY #90 tabs 03/08/22 10/17/22 Unknown Rx lisinopril 30 mg tablet 30 mg PO BID #180 tabs 03/08/22 10/17/22 Unknown Rx rosuvastatin 40 mg tablet (Crestor) 40 mg PO DAILY 90 days #90 tabs 03/08/22 10/17/22 Unknown Rx fenofibrate nanocrystallized 145 145 mg PO DAILY #90 tabs 03/09/22 10/17/22 Unknown Rx mg tablet nystatin 100,000 unit/gram topical 1 applic topical DAILY #3 grams 05/21/22 10/17/22 Unknown Rx powder amlodipine 5 mg tablet 5 mg PO BID #180 tabs 07/30/22 10/17/22 Unknown Rx mesalamine 400 mg capsule (with 800 mg PO BID #360 ea 09/05/22 10/17/22 Unknown Rx delayed release tablets inside) (Delzicol) meloxicam 7.5 mg tablet 7.5 mg PO DAILY #90 tabs 09/06/22 10/17/22 Unknown Rx potassium chloride 20 mEq 40 meq PO BID 30 days #120 tabs 09/26/22 10/17/22 Unknown Rx tablet,extended release(part/cryst) (Klor-Con M) furosemide 40 mg tablet (Lasix) 40 mg PO BID #60 tabs 10/01/22 10/17/22 10/17/22 Rx levothyroxine 50 mcg capsule 50 mcg PO DAILY #90 caps 10/15/22 10/17/22 Unknown Rx metoprolol succinate 100 mg 100 mg PO DAILY 10/17/22 10/17/22 Unknown History tablet,extended release 24 hr Allergies Allergy/AdvReac Type Severity Reaction Status Date / Time No Known Allergies Allergy Verified 10/17/22 12:22 PFSH Acute PFSH: Medical History Crohn's disease Dyslipidemia Essential (primary) hypertension Gout History of amputation of toe Hypothyroid Mitral valve prolapse, nonrheumatic DRISS (obstructive sleep apnea) Primary osteoarthritis of both hips Surgical History H/O hernia repair History of elbow surgery History of tonsillectomy Hx of colonoscopy with polypectomy Family History Other CAD (coronary artery disease) Cancer Social History Smoking and tobacco status: never smoked Alcohol intake: never Substance/Drug Use: never Vitals/I&O/Wt Last Vital Signs Pulse 103 H 10/17/22 13:53 BP 111/67 10/17/22 13:53 Pulse Ox 99 10/17/22 13:53 O2 Del Method Nasal Cannula 10/17/22 13:53 O2 Flow Rate 2 10/17/22 13:53 Weight last 48 hrs Weight 81.647 kg Physical Exam Narrative: General: Patient is awake. Frail appearing. Head: Normocephalic. Atraumatic. EOM intact. Neck: No JVD. Cardiovascular: RRR. No gallops. No murmurs. 4+ pitting edema from feet to abdomen Lungs: Decreased breath sounds at bilateral bases. Tachypneic when talking. Speaks in short sentences. Skin: No jaundice. No rashes. Abdomen: Normal bowel sounds, abdomen soft and nontender. Genito Urinary: Genital exam not performed since complaints not related. Rectal: Rectal exam not performed since no symptoms indicated blood loss. Extremities: No cyanosis or clubbing. Musculoskeletal: No erythematous joints. Neurological: Moves all 4 extremities. No myoclonus. Data 10/17/22 13:09 10/17/22 13:09 A&P Assessment and plan (1) Acute kidney injury: Severe acute kidney injury Hold Lasix Hold lisinopril and meloxicam Strict I's and O's Daily weights We will need nephrology consultation Renal ultrasound Urine electrolytes (2) Anemia: Likely multifactorial Continue to monitor hemoglobin Transfuse as needed (3) Diastolic dysfunction: Possible component of cardiorenal Recent echo reviewed Patient severely volume overloaded Strict I's and O's Daily weights (4) Gout: Hold allopurinol Qualifiers: Gout site: unspecified site Gout etiology: unspecified cause (5) Crohn's disease: Hold mesalamine for now, may restart tomorrow (6) Essential (primary) hypertension: Hold amlodipine due to severe edema Hold lisinopril due to JOSE Hold Lasix due to JOSE May consider hydralazine if he is hypertensive tonight (7) Hypothyroid: Continue Synthroid Qualifiers: Hypothyroidism type: acquired Qualified Code(s): E03.9 - Hypothyroidism, unspecified Plan DVT prophylaxis: SCD CODE STATUS: DNR-discussed with patient family Attestations Medical Necessity Statement*: Patient reports with severe renal failure and acute heart failure requiring h ospitalization with expected treatment to cross 2 midnights for nephrology evaluation, supportive care, diuresis, monitor electrolytes and further work-up. Coding Level of Care Code Acute Code for [facility] Fwd Diagnoses Acute kidney injury N17.9 Anemia D64.9 Diastolic dysfunction I51.89 Gout M10.9 Gout site: unspecified site Gout etiology: unspecified cause Crohn's disease K50.90 Essential (primary) hypertension I10 Hypothyroid E03.9 Hypothyroidism type: acquired
--- NOTE | 2022-10-17 17:11 | USR_ITS ---
PROCEDURE INFORMATION: Exam: US Retroperitoneal; Complete; Kidneys and Bladder Exam date and time: 10/17/2022 5:24 PM Age: 77 years old Clinical indication: Abdominal pain; Additional info: Severe mari TECHNIQUE: Imaging protocol: Real-time ultrasound of the retroperitoneum with image documentation. Complete exam focused on the kidneys and bladder. COMPARISON: US scrotum [id number] 08/14/2022 6:41 PM FINDINGS: Right kidney: Moderate right hydronephrosis. Left kidney: Mild left hydronephrosis. Urinary bladder: 15.7 x 15.2 x 21.0 cm urinary bladder with estimated volume 2627 cc. US/US renal BI* [id number] IMPRESSION: 1. Moderate right hydronephrosis, probably secondary to markedly enlarged urinary bladder. 2. Mild left hydronephrosis, probably secondary to markedly enlarged urinary bladder.. 3. Large 15.7 x 15.2 x 21.0 cm urinary bladder with estimated volume 2627 cc. 4. No medical renal disease.
[2022-10-17] MEDS: heparin 5,000 unit/mL INJ 1 mL 5000 UNIT SUBCUT (20:24)
[2022-10-17 22:09] LABS: Potassium, Radom Urine 23 mmol/L; Urine Random Chloride 53 mmol/L; Urine Random Sodium 58 mmol/L
[2022-10-17 22:37] LABS: Creatinine Urine, Random 37 mg/dL (39-259); Urea Nitrogen,Urine Random 202 mg/dL
[2022-10-18] VITALS (8 sets, daily range): BP systolic 104–129; BP diastolic 64–78; PULSE 76–95; RESP 15–18; TEMP 36.7–37.2; O2SAT 94–99
[2022-10-18 06:04] LABS: Eosinophils % 0.6 %; Lymphocytes # 0.8 10^3/uL (0.8-4.8); Lymphocytes % 11.6 %; Mean Corpuscular HGB Conc 31.1 g/dL (30.0-36.0); Mean Corpuscular Hemoglobin 23.7 pg (28.0-34.0); Mean Corpuscular Volume 76.3 fl (80-94); Mean Platelet Volume 8.7 fL (7.4-10.4); Monocytes # 0.3 10^3/uL (0.2-0.9); Monocytes % 5.3 %; Neutrophils % 81.9 %; Nucleated Red Blood Cells % 0 %; Platelet Count 142 10^3/cmm (130-400); White Blood Count 6.5 10^3/uL (4.0-10.0)
[2022-10-18 06:23] LABS: Alanine Aminotransferase 10 U/L (0-41); Albumin Level 2.5 g/dL (3.5-5.2); Alkaline Phosphatase 78 U/L (40-130); Anion Gap 21.3 (5-19); Aspartate Amino Transferase 13 U/L (0-40); Blood Urea Nitrogen 65 mg/dL (8-23); Calcium 8.1 mg/dL (8.5-10.5); Carbon Dioxide 18 mmol/L (22-29); Chloride 101 mmol/L (98-107); Globulin 3.2 g/dL (1.3-4.6); Glucose 72 mg/dL (65-115); Magnesium 1.8 mg/dL (1.7-2.3); Osmolality Calculated 301 mOsm/kg (285-295); Phosphorus 5.4 mg/dL (2.5-4.5); Potassium 3.3 mmol/L (3.5-5.1); Sodium 137 mmol/L (136-145); Total Bilirubin 0.2 mg/dL (0.15-1.2); Total Protein 5.7 g/dL (6.6-8.7)
[2022-10-18 06:25] LABS: Hematocrit 20.6 % (42.0-52.0); Hemoglobin 6.4 g/dL (11.7-16.6)
[2022-10-18 06:29] LABS: Creatinine Clr Calc Pharmacy 12.3929
[2022-10-18] MEDS: heparin 5,000 unit/mL INJ 1 mL 5000 UNIT SUBCUT ×2 (08:54→19:55)
[2022-10-18] MEDS: metoprolol succinate ER (24 HR) 100 mg Tablet PO (08:54)
[2022-10-18] MEDS: fenofibrate 145 mg Tablet PO (08:54)
[2022-10-18] MEDS: levothyroxine 50 mcg Tablet PO (08:54)
[2022-10-18 08:56] LABS: Ferritin 927 ng/mL (30-400); Iron 11 ug/dL (59-158); Percent Saturation 6.4 % (20-50); Total Iron Binding Capacity 170 mcg/dl; Unsaturated Iron Binding 159 ug/dL (112-347)
[2022-10-18 09:12] LABS: 25 Hydroxy Vitamin D 10 ng/mL (30-100)
--- NOTE | 2022-10-18 14:56 | P.PN_ITS ---
Subjective Subjective: Patient reports he is feeling better today. Cough has resolved. Continues to endorses severe lower extremity edema to his abdomen. Reports his abdomen is softer today. Denies fevers, chill, nausea or emesis. Medications: Reviewed: Yes Vitals/I&O/Wt Last Vital Signs Temp 98.1 F 10/18/22 08:00 Pulse 87 10/18/22 08:00 Resp 15 10/18/22 08:00 BP 125/68 10/18/22 08:00 Pulse Ox 99 10/18/22 08:00 O2 Del Method Nasal Cannula 10/17/22 20:08 O2 Flow Rate 2 10/17/22 13:53 10/17/22 10/18/22 10/18/22 22:59 06:59 14:59 Intake Total 480 / 480 Output Total 5000 / 5000 7000 / 77302 2550 / 2550 Balance -5000 / -5000 -7000 / -20523 -2070 / -2070 Weight last 48 hrs Weight 84.731 kg Weight 81.647 kg Physical Exam Narrative: General: Patient is awake. Alert. Lying in bed. Head: Normocephalic. Atraumatic. EOM intact. Neck: No JVD. Cardiovascular: RRR. No gallops. No murmurs. 4+ pitting edema from feet to abdomen, improved from yesterday Lungs: Decreased breath sounds at bilateral bases. Breathlessness has improved. No rales or rhonchi. Skin: No jaundice. No rashes. Abdomen: Normal bowel sounds, abdomen soft and nontender. Genito Urinary: Genital exam not performed since complaints not related. Rectal: Rectal exam not performed since no symptoms indicated blood loss. Extremities: No cyanosis or clubbing. Musculoskeletal: No erythematous joints. Neurological: Moves all 4 extremities. No myoclonus. Urinary Catheter Management: Summers: Cath Placed During This Visit: yes Reason for Continuing Indwelling Catheter: Other Urinary Catheter Date of Insertion: 10/17/22 Data 10/18/22 04:43 10/18/22 04:43 A&P Assessment and plan (1) Acute kidney injury: Severe acute kidney injury Hold Lasix Hold lisinopril and meloxicam Strict I's and O's Daily weights Nephrology consultation, voicemail left. Renal ultrasound reviewed, notable for severe retention Continue Summers catheter placement Obtain vit d level Anticipate large diuresis with resolution of post-obstructive physiology (2) Anemia: Likely multifactorial including inflammatory 2/2 chronic disease, possible GIB Continue to monitor hemoglobin Transfuse 1 pRBC, monitor for decompensation w/ additional volume Iron panel ordered prior to transfusion (3) Diastolic dysfunction: Patient remains severely volume overloaded Strict I's and O's Daily weights (4) Gout: Hold allopurinol Qualifiers: Gout site: unspecified site Gout etiology: unspecified cause (5) Crohn's disease: Restart mesalamine (6) Essential (primary) hypertension: Hold amlodipine due to severe edema Hold lisinopril due to JOSE Hold Lasix due to JOSE May consider hydralazine if he is hypertensive tonight (7) Hypothyroid: Continue Synthroid Qualifiers: Hypothyroidism type: acquired Qualified Code(s): E03.9 - Hypothyroidism, unspecified Plan DVT prophylaxis: SCD CODE STATUS: DNR-discussed with patient family Attestations Medical Necessity Statement*: Patient requires ongoing hospitalization for blood transfusion, serial labs, nephrology evaluation, possible renal replacement therapy, and supportive care. Coding Level of Care Code Acute Code for [facility] Fwd Diagnoses Acute kidney injury N17.9 Anemia D64.9 Diastolic dysfunction I51.89 Gout M10.9 Gout site: unspecified site Gout etiology: unspecified cause Crohn's disease K50.90 Essential (primary) hypertension I10 Hypothyroid E03.9 Hypothyroidism type: acquired
[2022-10-18] MEDS: ergocalciferol (vitamin D2) 50,000 Unit Capsule 50000 UNIT PO (16:15)
--- NOTE | 2022-10-18 17:16 | PM.CONSULT ---
Providers/Reason For Consult Consulting Physician/Specialty*: kommana /Nephrology Reason for Consult*: JOSE Attending Physician: Yonathan Medina MD Primary Care Provider: Harris Nugent MD History of Present Illness History of Present Illness Esequiel Kinney is a 77 year old male with PMH of CHF - diastolic heart failure,, crohn's disease, osteoarthritis, obstructive sleep apnea, hypothyroidism, hypertension, and dyslipidemia presented to the emergency department with severe lower extremity edema. Edema was persistent despite Lasix. Also reported scrotal edema , and abdominal wall edema. ? Lab data sig for severe JOSE with Cr 8.0 , K was 5.2 , Co2 was 15. Renal US showed moderate right and lild right hydronephrosis , distended bladder Review of Systems Narrative: other ROS engative Medications/Allergies Home Medications Medication Instructions Recorded Confirmed Last Taken Type acetaminophen 500 mg tablet 500 mg PO Q6H PRN Pain 02/14/21 10/17/22 Unknown History (Tylenol Extra Strength) allopurinol 300 mg tablet 300 mg PO DAILY #90 tabs 03/08/22 10/17/22 Unknown Rx lisinopril 30 mg tablet 30 mg PO BID #180 tabs 03/08/22 10/17/22 Unknown Rx rosuvastatin 40 mg tablet (Crestor) 40 mg PO DAILY 90 days #90 tabs 03/08/22 10/17/22 Unknown Rx fenofibrate nanocrystallized 145 145 mg PO DAILY #90 tabs 03/09/22 10/17/22 Unknown Rx mg tablet nystatin 100,000 unit/gram topical 1 applic topical DAILY #3 grams 05/21/22 10/17/22 Unknown Rx powder amlodipine 5 mg tablet 5 mg PO BID #180 tabs 07/30/22 10/17/22 Unknown Rx mesalamine 400 mg capsule (with 800 mg PO BID #360 ea 09/05/22 10/17/22 Unknown Rx delayed release tablets inside) (Delzicol) meloxicam 7.5 mg tablet 7.5 mg PO DAILY #90 tabs 09/06/22 10/17/22 Unknown Rx potassium chloride 20 mEq 40 meq PO BID 30 days #120 tabs 09/26/22 10/17/22 Unknown Rx tablet,extended release(part/cryst) (Klor-Con M) furosemide 40 mg tablet (Lasix) 40 mg PO BID #60 tabs 10/01/22 10/17/22 10/17/22 Rx levothyroxine 50 mcg capsule 50 mcg PO DAILY #90 caps 10/15/22 10/17/22 Unknown Rx metoprolol succinate 100 mg 100 mg PO DAILY 10/17/22 10/17/22 Unknown History tablet,extended release 24 hr Allergies Allergy/AdvReac Type Severity Reaction Status Date / Time No Known Allergies Allergy Verified 10/17/22 12:22 Current Medications Generic Name Dose Route Start Last Admin Trade Name Benjie PRN Reason Stop Dose Admin Ergocalciferol 50,000 unit 10/18/22 15:30 10/18/22 16:15 Ergocalciferol (Vitamin D2) 50,000 Unit Capsule PO 50,000 unit Q7D TIMOTEO Administration Fenofibrate 145 mg 10/18/22 09:00 10/18/22 08:54 Fenofibrate 145 Mg Tablet PO 145 mg DAILY TIMOTEO Administration Heparin Sodium (Porcine) 5,000 unit 10/17/22 20:08 10/18/22 08:54 Heparin 5,000 Unit/Ml Inj 1 Ml SUBCUT 5,000 unit Q12H TIMOTEO Administration Levothyroxine Sodium 50 mcg 10/18/22 09:00 10/18/22 08:54 Levothyroxine 50 Mcg Tablet PO 50 mcg DAILY TIMOTEO Administration Metoprolol Succinate 100 mg 10/18/22 09:00 10/18/22 08:54 Metoprolol Succinate Er (24 Hr) 100 Mg Tablet PO 100 mg DAILY TIMOTEO Administration PFSH Acute PFSH: Medical History Crohn's disease Dyslipidemia Essential (primary) hypertension Gout History of amputation of toe Hypothyroid Mitral valve prolapse, nonrheumatic DRISS (obstructive sleep apnea) Primary osteoarthritis of both hips Surgical History H/O hernia repair History of elbow surgery History of tonsillectomy Hx of colonoscopy with polypectomy Family History Other CAD (coronary artery disease) Cancer Social History Smoking and tobacco status: never smoked Alcohol intake: never Substance/Drug Use: never Vitals/I&O/Wt Last Vital Signs Temp 98.3 F 10/18/22 15:54 Pulse 87 10/18/22 15:54 Resp 17 10/18/22 15:54 BP 113/69 10/18/22 15:54 Pulse Ox 96 10/18/22 15:54 O2 Del Method Nasal Cannula 10/17/22 20:08 O2 Flow Rate 2 10/17/22 13:53 10/18/22 10/18/22 10/18/22 06:59 14:59 22:59 Intake Total 480 / 480 Output Total 7000 / 51334 2550 / 2550 1100 / 3650 Balance -7000 / -08717 -2070 / -2070 -1100 / -3170 Weight last 48 hrs Weight 84.731 kg Weight 81.647 kg Physical Exam Narrative: awake , alert , no distress HEENT , PEERLA S1S2 RRR per report lungs clear per report + edema Urinary Catheter Management: Summers: Cath Placed During This Visit: yes Reason for Continuing Indwelling Catheter: Other Urinary Catheter Date of Insertion: 10/17/22 Data 10/19/22 04:10 10/19/22 04:10 A&P Assessment and plan (1) Acute kidney injury: 1. JOSE :Baseline Cr 0.3 about a month ago . Severe JOSE sec to onstruction likely , and Hemodynamic from intravascular volume depletion from severe anemia. Cr 8.0 on presentation - Summers catheter placed and Cr improved to 5.5 today - , poluric , watch electrolytes closely - agree with holding ACEI, Meloxicam and diuretics for now 2. Severe anemia : plan for tranfusion 3. Metabolic acidosis : mild , improving 4. Plan per medicine Coding Level of Care Code Acute Code for [facility] Fwd Diagnoses Acute kidney injury N17.9
--- NOTE | 2022-10-18 23:04 | PC.NURSE ---
blood transfusion complete at 2114, patient tolerated well.
[2022-10-19] VITALS (9 sets, daily range): BP systolic 124–147; BP diastolic 65–80; PULSE 56–82; RESP 14–18; TEMP 36.4–37.1; O2SAT 92–98
[2022-10-19 04:44] LABS: Eosinophils % 0.8 %; Hematocrit 22.7 % (42.0-52.0); Hemoglobin 7.1 g/dL (11.7-16.6); Lymphocytes # 1.1 10^3/uL (0.8-4.8); Lymphocytes % 20.5 %; Mean Corpuscular HGB Conc 31.3 g/dL (30.0-36.0); Mean Corpuscular Hemoglobin 24.2 pg (28.0-34.0); Mean Corpuscular Volume 77.5 fl (80-94); Monocytes # 0.4 10^3/uL (0.2-0.9); Monocytes % 6.9 %; Neutrophils # 3.72 10^3/uL (1.8-7.7); Neutrophils % 71.2 %; Nucleated Red Blood Cells % 0 %; Platelet Count 151 10^3/cmm (130-400); Red Blood Count 2.93 10^6/uL (4.1-5.3); Red Cell Distribution Width 18.3 % (12.1-15.1); White Blood Count 5.2 10^3/uL (4.0-10.0)
[2022-10-19 05:10] LABS: Albumin Level 2.5 g/dL (3.5-5.2); Anion Gap 13.5 (5-19); Blood Urea Nitrogen 35 mg/dL (8-23); Calcium 8.3 mg/dL (8.5-10.5); Carbon Dioxide 24 mmol/L (22-29); Chloride 109 mmol/L (98-107); Glucose 105 mg/dL (65-115); Magnesium 1.9 mg/dL (1.7-2.3); Phosphorus 2.9 mg/dL (2.5-4.5); Sodium 144 mmol/L (136-145)
[2022-10-19 05:39] LABS: Potassium 2.5 mmol/L (3.5-5.1)
--- NOTE | 2022-10-19 06:19 | PC.NURSE ---
Dr. Kirk notified of patients critical lab-potassium 2.5, new order recieved.
[2022-10-19] MEDS: lidocaine 1% 5 ML in potassium chloride premix 100 ML 26.25 ML IV (06:35)
[2022-10-19] MEDS: metoprolol succinate ER (24 HR) 100 mg Tablet PO (08:37)
[2022-10-19] MEDS: heparin 5,000 unit/mL INJ 1 mL 5000 UNIT SUBCUT ×2 (08:37→20:29)
[2022-10-19] MEDS: fenofibrate 145 mg Tablet PO (08:37)
[2022-10-19] MEDS: levothyroxine 50 mcg Tablet PO (08:37)
[2022-10-19] MEDS: potassium chloride ER 20 mEq Tablet 40 MEQ PO (10:24)
[2022-10-19] MEDS: tamsulosin 0.4 mg Capsule PO (10:24)
[2022-10-19] MEDS: dextrose 5%-sod chloride 0.45% 1,000 ML 100 ML IV ×2 (11:48→20:29)
--- NOTE | 2022-10-19 11:57 | P.PN_ITS ---
Subjective Subjective: feels better Medications: Reviewed: Yes Vitals/I&O/Wt Last Vital Signs Temp 98.2 F 10/19/22 08:00 Pulse 76 10/19/22 08:00 Resp 16 10/19/22 08:00 BP 147/74 10/19/22 08:00 Pulse Ox 97 10/19/22 08:00 O2 Del Method Room Air 10/19/22 03:48 O2 Flow Rate 2 10/17/22 13:53 10/18/22 10/19/22 10/19/22 22:59 06:59 14:59 Intake Total 240 / 720 465 / 465 Output Total 2300 / 4850 1999 / 50 2300 / 2300 Balance -2060 / -4130 -2000 / -6130 -1835 / -1835 Weight last 48 hrs Weight 79.333 kg Weight 84.731 kg Weight 81.647 kg Physical Exam Narrative: awake , alert , no distress HEENT , PEERLA S1S2 RRR per report lungs clear per report + edema Urinary Catheter Management: Summers: Cath Placed During This Visit: yes Reason for Continuing Indwelling Catheter: Accurate Measurement of Urinary Output in Critically Ill Patients Urinary Catheter Date of Insertion: 10/17/22 Data 10/19/22 04:10 10/19/22 04:10 A&P Assessment and plan (1) Acute kidney injury: 1. JOSE :Baseline Cr 0.3 about a month ago . Severe JOSE sec to onstruction likely , and Hemodynamic from intravascular volume depletion from severe anemia. Cr 8.0 on presentation - Summers catheter placed and Cr improved to 1.8 today - , polyuric , watch electrolytes closely, start D51/2 NS with KCL @ 100cc/hr for next 24 hours to prevent intravascular volume depletion - agree with holding ACEI, Meloxicam and diuretics for now 2. Severe anemia : plan for tranfusion 3. Metabolic acidosis : mild , improving 4. Hypokalemia : replete Plan per medicine Attestations Medical Necessity Statement*: per medicine Coding Level of Care Code Acute Code for [facility] Fwd Diagnoses Acute kidney injury N17.9
--- NOTE | 2022-10-19 14:38 | PM.PN ---
Subjective Subjective: Patient states he is feeling better. Swelling continues to improve. Marked urine output. Continues to endorse weakness. Denies fevers, chills, nausea or emesis. Medications: Reviewed: Yes Vitals/I&O/Wt Last Vital Signs Temp 98.7 F 10/19/22 12:00 Pulse 56 L 10/19/22 12:00 Resp 17 10/19/22 12:00 BP 124/70 10/19/22 12:00 Pulse Ox 98 10/19/22 12:00 O2 Del Method Room Air 10/19/22 03:48 O2 Flow Rate 2 10/17/22 13:53 10/18/22 10/19/22 10/19/22 22:59 06:59 14:59 Intake Total 240 / 720 945 / 945 Output Total 2300 / 4850 1999 / 6850 2300 / 2300 Balance -2060 / -4130 -2000 / -6130 -1355 / -1355 Weight last 48 hrs Weight 79.333 kg Weight 84.731 kg Physical Exam Narrative: General: Patient is awake. Alert. Head: Normocephalic. Atraumatic. EOM intact. Neck: No JVD. Cardiovascular: RRR. No gallops. No murmurs. 2-3+ pitting edema in lower extremities. Lungs: Decreased breath sounds at bilateral bases. Breathlessness has improved. No rales or rhonchi. Skin: No jaundice. No rashes. Abdomen: Normal bowel sounds, abdomen soft and nontender. Genito Urinary: Genital exam not performed since complaints not related. Rectal: Rectal exam not performed since no symptoms indicated blood loss. Extremities: No cyanosis or clubbing. Musculoskeletal: No erythematous joints. Neurological: Moves all 4 extremities. No myoclonus. Urinary Catheter Management: Summers: Cath Placed During This Visit: yes Reason for Continuing Indwelling Catheter: Accurate Measurement of Urinary Output in Critically Ill Patients Urinary Catheter Date of Insertion: 10/17/22 Data 10/19/22 04:10 10/19/22 04:10 A&P Assessment and plan (1) Acute kidney injury: Severe urinary retention s/p Summers Severe acute kidney injury, improving Hold Lasix Hold lisinopril and meloxicam Strict I's and O's Daily weights Nephrology consulted Agree with fluids as urine output is too high Continue Summers catheter placement Start ergocalciferol for severe vitamin d def (2) Anemia: Likely multifactorial including inflammatory 2/2 chronic disease, possible GIB Continue to monitor hemoglobin S/P 1 pRBC on 10/18, continue to monitor, may need additional transfusions Follow up iron studies (3) Diastolic dysfunction: Patient remains severely volume overloaded Strict I's and O's Daily weights (4) Gout: Hold allopurinol Qualifiers: Gout site: unspecified site Gout etiology: unspecified cause (5) Crohn's disease: Mesalamine is NF (6) Essential (primary) hypertension: Hold amlodipine due to severe edema Hold lisinopril due to JOSE Hold Lasix due to JOSE Consider hydralazine if needed (7) Hypothyroid: Continue Synthroid Qualifiers: Hypothyroidism type: acquired Qualified Code(s): E03.9 - Hypothyroidism, unspecified Plan DVT prophylaxis: SCD CODE STATUS: DNR Attestations Medical Necessity Statement*: Patient requires ongoing hospitalization for serial labs, nephrology evaluation, possible renal replacement therapy, and supportive care. Coding Level of Care Code Acute Code for Chg Fwd Diagnoses Acute kidney injury N17.9 Anemia D64.9 Diastolic dysfunction I51.89 Gout M10.9 Gout site: unspecified site Gout etiology: unspecified cause Crohn's disease K50.90 Essential (primary) hypertension I10 Hypothyroid E03.9 Hypothyroidism type: acquired
[2022-10-20] VITALS (9 sets, daily range): BP systolic 136–150; BP diastolic 77–82; PULSE 52–68; RESP 16–18; TEMP 36.3–36.7; O2SAT 95–99
[2022-10-20 05:13] LABS: Basophils % 0.2 %; Eosinophils # 0.1 10^3/uL (0.0-0.8); Eosinophils % 1.1 %; Hematocrit 23.7 % (42.0-52.0); Hemoglobin 7.2 g/dL (11.7-16.6); Lymphocytes # 1.4 10^3/uL (0.8-4.8); Mean Corpuscular HGB Conc 30.4 g/dL (30.0-36.0); Mean Corpuscular Hemoglobin 23.7 pg (28.0-34.0); Mean Platelet Volume 9.2 fL (7.4-10.4); Monocytes # 0.3 10^3/uL (0.2-0.9); Monocytes % 6.7 %; Neutrophils # 2.78 10^3/uL (1.8-7.7); Neutrophils % 60.1 %; Nucleated Red Blood Cells % 0 %; Platelet Count 166 10^3/cmm (130-400); Red Blood Count 3.04 10^6/uL (4.1-5.3); Red Cell Distribution Width 18.4 % (12.1-15.1); White Blood Count 4.6 10^3/uL (4.0-10.0)
[2022-10-20 05:34] LABS: Alanine Aminotransferase 11 U/L (0-41); Albumin Level 2.5 g/dL (3.5-5.2); Alkaline Phosphatase 63 U/L (40-130); Anion Gap 14.9 (5-19); Aspartate Amino Transferase 16 U/L (0-40); Blood Urea Nitrogen 17 mg/dL (8-23); Carbon Dioxide 24 mmol/L (22-29); Chloride 107 mmol/L (98-107); Glucose 112 mg/dL (65-115); Magnesium 1.5 mg/dL (1.7-2.3); Osmolality Calculated 298 mOsm/kg (285-295); Phosphorus 1.7 mg/dL (2.5-4.5); Sodium 143 mmol/L (136-145); Total Bilirubin 0.3 mg/dL (0.15-1.2); Total Protein 5.5 g/dL (6.6-8.7)
[2022-10-20 05:38] LABS: Potassium 2.9 mmol/L (3.5-5.1)
[2022-10-20] MEDS: dextrose 5%-sod chloride 0.45% 1,000 ML 100 ML IV (06:53)
[2022-10-20] MEDS: tamsulosin 0.4 mg Capsule PO (08:36)
[2022-10-20] MEDS: heparin 5,000 unit/mL INJ 1 mL 5000 UNIT SUBCUT ×2 (08:36→20:24)
[2022-10-20] MEDS: levothyroxine 50 mcg Tablet PO (08:36)
[2022-10-20] MEDS: fenofibrate 145 mg Tablet PO (08:36)
[2022-10-20] MEDS: metoprolol succinate ER (24 HR) 100 mg Tablet PO (08:36)
--- NOTE | 2022-10-20 09:03 | PM.PN ---
Subjective Subjective: no events overnight Medications: Reviewed: Yes Vitals/I&O/Wt Last Vital Signs Temp 97.9 F 10/20/22 07:54 Pulse 66 10/20/22 07:54 Resp 16 10/20/22 07:54 BP 150/82 10/20/22 07:54 Pulse Ox 96 10/20/22 07:54 O2 Del Method Room Air 10/20/22 07:54 O2 Flow Rate 2 10/17/22 13:53 10/19/22 10/20/22 10/20/22 22:59 06:59 14:59 Intake Total 1398.333 / 2343.333 906.667 / 3250.000 Output Total 1000 / 3300 1200 / 4500 Balance 398.333 / -956.667 -293.333 / -1250.000 Weight last 48 hrs Weight 78.199 kg Weight 79.333 kg Physical Exam Narrative: awake , alert , no distress HEENT , PEERLA S1S2 RRR per report lungs clear per report + edema Urinary Catheter Management: Summers: Cath Placed During This Visit: yes Reason for Continuing Indwelling Catheter: Acute Urinary Retention or Obstruction Urinary Catheter Date of Insertion: 10/17/22 Data 10/20/22 04:18 10/20/22 04:18 A&P Assessment and plan (1) Acute kidney injury: 1. JOSE :Baseline Cr 0.3 about a month ago . Severe JOSE sec to onstruction likely , and Hemodynamic from intravascular volume depletion from severe anemia. Cr 8.0 on presentation - Summers catheter placed and Cr improved to 1.8 today - , was polyuric ,on D51/2 NS with KCL @ 100cc/hr - discuntinue IVFs - can resume ACEI and diuretics @ dc 2. Severe anemia : plan for tranfusion 3. Metabolic acidosis : mild , improving 4. Hypokalemia : replete Plan per medicine Attestations Medical Necessity Statement*: per medicine Coding Level of Care Code Acute Code for [facility] Diagnoses Acute kidney injury N17.9
--- NOTE | 2022-10-20 11:14 | PM.PN ---
Subjective Subjective: Patient states he is feeling much better. Reports abdomen is smaller. Reports edema is better. He does note that he remains very weak though. Otherwise, denies fevers, nausea, or emesis. Medications: Reviewed: Yes Vitals/I&O/Wt Last Vital Signs Temp 97.9 F 10/20/22 07:54 Pulse 66 10/20/22 07:54 Resp 16 10/20/22 07:54 BP 150/82 10/20/22 07:54 Pulse Ox 96 10/20/22 07:54 O2 Del Method Room Air 10/20/22 07:54 O2 Flow Rate 2 10/17/22 13:53 10/19/22 10/20/22 10/20/22 22:59 06:59 14:59 Intake Total 1398.333 / 2343.333 906.667 / 3250.000 480 / 480 Output Total 1000 / 3300 1200 / 4500 Balance 398.333 / -956.667 -293.333 / -1250.000 480 / 480 Weight last 48 hrs Weight 78.199 kg Weight 79.333 kg Physical Exam Narrative: General: Patient is awake. Alert. Lying in bed. Head: Normocephalic. Atraumatic. EOM intact. Neck: No JVD. Cardiovascular: RRR. No gallops. No murmurs. 2+ pitting edema in lower extremities. Lungs: Decreased breath sounds at bilateral bases.No rales or rhonchi. Skin: No jaundice. No rashes. Abdomen: Normal bowel sounds, abdomen soft and nontender. Genito Urinary: Summers Rectal: Rectal exam not performed since no symptoms indicated blood loss. Extremities: No cyanosis or clubbing. Musculoskeletal: No erythematous joints. Neurological: Moves all 4 extremities. No myoclonus. Urinary Catheter Management: Summers: Cath Placed During This Visit: yes Reason for Continuing Indwelling Catheter: Acute Urinary Retention or Obstruction Urinary Catheter Date of Insertion: 10/17/22 Data 10/20/22 04:18 10/20/22 04:18 A&P Assessment and plan (1) Acute kidney injury: Severe urinary retention s/p Summers Severe acute kidney injury, improving, nearly resolved Severe vitamin D deficiency Hold Lasix, lisinopril and meloxicam Strict I's and O's Daily weights Nephrology following Continue IVF (2) Anemia: Likely multifactorial including inflammatory 2/2 chronic disease Continue to monitor hemoglobin S/P 1 pRBC on 10/18, continue to monitor, may need additional transfusions (3) Diastolic dysfunction: Patient remains volume overloaded Strict I's and O's Daily weights Consider Lasix in next 1-2 days (4) Gout: Hold allopurinol Qualifiers: Gout site: unspecified site Gout etiology: unspecified cause (5) Crohn's disease: Mesalamine is NF (6) Essential (primary) hypertension: Hold amlodipine due to severe edema Hold lisinopril due to JOSE Hold Lasix due to JOSE Consider hydralazine if needed (7) Hypothyroid: Continue Synthroid Qualifiers: Hypothyroidism type: acquired Qualified Code(s): E03.9 - Hypothyroidism, unspecified (8) Hypokalemia: Associated with hypomagnesia, hypophosphatemia Replace electrolytes as needed Plan DVT prophylaxis: SCD CODE STATUS: DNR Attestations Medical Necessity Statement*: Patient requires ongoing hospitalization for serial labs, nephrology, IV fluids, and supportive care. Coding Level of Care Code Acute Code for [facility] Fwd Diagnoses Acute kidney injury N17.9 Anemia D64.9 Diastolic dysfunction I51.89 Gout M10.9 Gout site: unspecified site Gout etiology: unspecified cause Crohn's disease K50.90 Essential (primary) hypertension I10 Hypothyroid E03.9 Hypothyroidism type: acquired Hypokalemia E87.6
[2022-10-21] VITALS (7 sets, daily range): BP systolic 108–144; BP diastolic 68–84; PULSE 46–67; RESP 16–18; TEMP 36.6–36.8; O2SAT 95–98
[2022-10-21 05:24] LABS: Basophils % 0.2 %; Eosinophils # 0.1 10^3/uL (0.0-0.8); Eosinophils % 1.3 %; Hematocrit 25.2 % (42.0-52.0); Hemoglobin 7.7 g/dL (11.7-16.6); Lymphocytes # 1.4 10^3/uL (0.8-4.8); Lymphocytes % 30.1 %; Mean Corpuscular HGB Conc 30.6 g/dL (30.0-36.0); Mean Corpuscular Hemoglobin 23.9 pg (28.0-34.0); Mean Corpuscular Volume 78.3 fl (80-94); Mean Platelet Volume 9.2 fL (7.4-10.4); Monocytes # 0.3 10^3/uL (0.2-0.9); Monocytes % 6.2 %; Neutrophils # 2.85 10^3/uL (1.8-7.7); Neutrophils % 60.7 %; Nucleated Red Blood Cells % 0 %; Platelet Count 169 10^3/cmm (130-400); Red Blood Count 3.22 10^6/uL (4.1-5.3); Red Cell Distribution Width 18.5 % (12.1-15.1); White Blood Count 4.7 10^3/uL (4.0-10.0)
[2022-10-21 05:40] LABS: Albumin Level 2.5 g/dL (3.5-5.2); Anion Gap 13.9 (5-19); Blood Urea Nitrogen 9 mg/dL (8-23); Calcium 7.8 mg/dL (8.5-10.5); Carbon Dioxide 25 mmol/L (22-29); Chloride 103 mmol/L (98-107); Glucose 106 mg/dL (65-115); Magnesium 1.4 mg/dL (1.7-2.3); Phosphorus 1.8 mg/dL (2.5-4.5); Sodium 139 mmol/L (136-145)
--- NOTE | 2022-10-21 05:50 | PM.PN ---
Subjective Subjective: No acute events Medications: Reviewed: Yes Vitals/I&O/Wt Last Vital Signs Temp 98.1 F 10/21/22 03:57 Pulse 46 L 10/21/22 04:41 Resp 16 10/21/22 03:57 BP 134/78 10/21/22 03:57 Pulse Ox 95 10/21/22 03:57 O2 Del Method Room Air 10/21/22 03:57 O2 Flow Rate 2 10/17/22 13:53 10/20/22 10/20/22 10/21/22 14:59 22:59 06:59 Intake Total 720 / 720 1830 / 2550 Output Total 1000 / 1000 1200 / 2200 1650 / 3850 Balance -280 / -280 630 / 350 -1650 / -1300 Weight last 48 hrs Weight 78.199 kg Weight 79.333 kg Physical Exam Narrative: awake , alert , no distress HEENT , PEERLA S1S2 RRR per report lungs clear per report + edema Urinary Catheter Management: Summers: Cath Placed During This Visit: yes Reason for Continuing Indwelling Catheter: Acute Urinary Retention or Obstruction Urinary Catheter Date of Insertion: 10/17/22 Data 10/21/22 04:31 10/21/22 04:31 A&P Assessment and plan (1) Acute kidney injury: 1. JOSE :Baseline Cr 0.3 about a month ago . Severe JOSE sec to onstruction likely , and Hemodynamic from intravascular volume depletion from severe anemia. Cr 8.0 on presentation - Summers catheter placed and Cr improved back to baseline -postobstructive polyuria improved - can resume ACEI and diuretics @ dc 2. Severe anemia : s/p tranfusion 3. Metabolic acidosis : mild , improving 4. Hypokalemia : replete 5. h/o Diastolic CHF Plan per medicine Attestations Medical Necessity Statement*: per medicine Coding Level of Care Code Acute Code for [facility] Diagnoses Acute kidney injury N17.9
[2022-10-21] MEDS: tamsulosin 0.4 mg Capsule PO (08:24)
[2022-10-21] MEDS: levothyroxine 50 mcg Tablet PO (08:24)
[2022-10-21] MEDS: fenofibrate 145 mg Tablet PO (08:24)
[2022-10-21] MEDS: heparin 5,000 unit/mL INJ 1 mL 5000 UNIT SUBCUT ×2 (08:24→20:11)
[2022-10-21] MEDS: metoprolol succinate ER (24 HR) 100 mg Tablet PO (08:24)
[2022-10-21 09:19] LABS: Potassium 2.9 mmol/L (3.5-5.1)
--- NOTE | 2022-10-21 10:37 | P.PN_ITS ---
Subjective Subjective: Patient reports he is feeling better. Denies abdominal pain, fevers, chills, nausea or emesis. Reports his strength is improving. He is eager to continue therapy. Medications: Reviewed: Yes Vitals/I&O/Wt Last Vital Signs Temp 98.0 F 10/21/22 07:50 Pulse 67 10/21/22 07:50 Resp 18 10/21/22 07:50 BP 139/84 10/21/22 07:50 Pulse Ox 96 10/21/22 07:50 O2 Del Method Room Air 10/21/22 07:50 O2 Flow Rate 2 10/17/22 13:53 10/20/22 10/21/22 10/21/22 22:59 06:59 14:59 Intake Total 1830 / 2550 360 / 360 Output Total 1200 / 2200 1650 / 3850 1100 / 1100 Balance 630 / 350 -1650 / -1300 -740 / -740 Weight last 48 hrs Weight 75.778 kg Weight 78.199 kg Physical Exam Narrative: General: Patient is awake. Alert. Lying in bed. Very pleasant. Head: Normocephalic. Atraumatic. EOM intact. Neck: No JVD. Cardiovascular: RRR. No gallops. No murmurs. 1+ edema in lower extremities. Lungs: Decreased breath sounds at bilateral bases.No rales or rhonchi. Skin: No jaundice. No rashes. Abdomen: Normal bowel sounds, abdomen soft and nontender. Genito Urinary: Summers Rectal: Rectal exam not performed since no symptoms indicated blood loss. Extremities: No cyanosis or clubbing. Musculoskeletal: No erythematous joints. Neurological: Moves all 4 extremities. No myoclonus. Urinary Catheter Management: Summers: Cath Placed During This Visit: yes Reason for Continuing Indwelling Catheter: Acute Urinary Retention or Obstruction Urinary Catheter Date of Insertion: 10/17/22 Data 10/21/22 04:31 10/21/22 04:31 A&P Assessment and plan (1) Acute kidney injury: Post-obstructive JOSE status post Summers catheter placement Severe vitamin D deficiency Hold Lasix, lisinopril and meloxicam Strict I's and O's Daily weights Nephrology following Encourage oral intake Continue Flomax Will need urology follow up (2) Anemia: Likely multifactorial including inflammatory 2/2 chronic disease and SEAN Continue to monitor hemoglobin S/P 1 pRBC on 10/18 Venofer ordered (3) Hypokalemia: Associated with hypomagnesia, hypophosphatemia Replace electrolytes (4) Urinary retention: Management as above (5) Diastolic dysfunction: Strict I's and O's Daily weights Consider Lasix in next 1-2 days (6) Gout: Hold allopurinol Qualifiers: Gout site: unspecified site Gout etiology: unspecified cause (7) Crohn's disease: Mesalamine is NF (8) Essential (primary) hypertension: Hold amlodipine due to severe edema Hold lisinopril due to JOSE Hold Lasix due to JOSE Consider hydralazine if needed (9) Hypothyroid: Continue Synthroid Qualifiers: Hypothyroidism type: acquired Qualified Code(s): E03.9 - Hypothyroi dism, unspecified Plan DVT prophylaxis: SCD CODE STATUS: DNR Attestations Medical Necessity Statement*: Patient requires ongoing hospitalization for IV iron, IV electrolyte replacement, serial labs, therapy, and supportive care. Coding Level of Care Code Acute Code for [facility] Fwd Diagnoses Acute kidney injury N17.9 Anemia D64.9 Hypokalemia E87.6 Urinary retention R33.9 Diastolic dysfunction I51.89 Gout M10.9 Gout site: unspecified site Gout etiology: unspecified cause Crohn's disease K50.90 Essential (primary) hypertension I10 Hypothyroid E03.9 Hypothyroidism type: acquired
[2022-10-21] MEDS: iron sucrose 200 MG in sodium chloride 0.9% (100 ml) 100 ML 220 MG IV (13:28)
[2022-10-21] MEDS: potassium chloride ER 20 mEq Tablet 40 MEQ PO (13:28)
[2022-10-21] MEDS: magnesium sulfate premix 2 GM/50 ML PIGGYBACK IV (13:29)
[2022-10-22] VITALS: BP 130/63; PULSE 57; RESP 16; TEMP 36.7; O2SAT 98
[2022-10-22 04:00] VITALS: BP 132/76; PULSE 54; RESP 16; TEMP 36.9; O2SAT 96
[2022-10-22 05:19] VITALS: BMI 22.3
[2022-10-22 05:58] VITALS: PULSE 55
[2022-10-22 06:08] LABS: Albumin Level 2.6 g/dL (3.5-5.2); Blood Urea Nitrogen 7 mg/dL (8-23); Calcium 8.1 mg/dL (8.5-10.5); Carbon Dioxide 23 mmol/L (22-29); Chloride 100 mmol/L (98-107); Glucose 100 mg/dL (65-115); Magnesium 1.8 mg/dL (1.7-2.3); Sodium 137 mmol/L (136-145)
[2022-10-22 07:38] VITALS: BP 127/71; PULSE 55; RESP 16; TEMP 37; O2SAT 97
--- NOTE | 2022-10-22 09:45 | PM.DCS ---
Discharge Providers Date of Admission: 10/17/22 18:40 Date of Discharge: October 22, 2022 Attending Provider at Admission: Yonathan Medina MD Attending Provider at Discharge: Carissa King MD Primary Care Provider: Harris Nugent MD Diagnoses at Discharge Discharge Diagnosis (1) Acute kidney injury: Status: Acute (2) Anemia: Status: Acute (3) Hypokalemia: Status: Acute (4) Urinary retention: Status: Acute (5) Diastolic dysfunction: Status: Acute (6) Gout: Status: Acute Qualifiers: Gout etiology: unspecified cause Gout site: unspecified site (7) Crohn's disease: Status: Acute (8) Essential (primary) hypertension: Status: Chronic (9) Hypothyroid: Status: Chronic Qualifiers: Hypothyroidism type: acquired Qualified Code(s): E03.9 - Hypothyroidism, unspecified Reason for Visit Reason for Visit: PITTING EDEMA/ PAIN Brief History: taken from H&P: Esequiel Kinney is a 77 year old male with a past medical history significant for anemia, diastolic heart failure, basal cell adenocarcinoma, gout, crohn's disease, osteoarthritis, obstructive sleep apnea, hypothyroidism, hypertension, and dyslipidemia who presented to the emergency department with severe lower extremity edema.? Patient reports symptoms began a couple months ago.?Reports initially was started on Lasix and the dose was adjusted about a month ago.? He reports despite this edema continued to get worse.? He reports the edema is now up to his abdomen.? He endorses associated symptoms of scrotal swelling and abdominal hardness.? He also reports a productive cough which started today.? He reports exertion worsens the symptoms.? He states he has not been able to walk for about a week or so.? Hospital Course Hospital Course Patient was admitted to the hospital and managed for severe acute kidney injury with creatinine of 8 on admission. Patient was found to have bladder was distended 15.7 x 15.2 x 21 cm with an estimated volume of 2600 cc. No medical renal disease was identified. This is likely secondary to significant bladder outlet obstruction from an enlarged prostate. Ozuna catheter with immediate drainage of urine. Creatinine has continued to improve since then, now back at baseline of 0.5. urine output currently over 5 L last 24 hrs. Lisinopril stopped at discharge. nephrology consulted and followed patient. He is being discharged with Ozuna in place with recommendation to follow up with urology as outpatient. he has a known history of diatsolic CHF. recent echo from 09/21 had shown Normal left ventricular size and systolic function, EF 77 %. ?Grade III/IV diastolic dysfunction (restrictive filling pattern), severely elevated filling pressures. lasix on hold at discharge, Please reassess if needs to be resumed atthe discretion of SNF physician. Currently he is net negative 24L this admission with hypokalemia, therefore not resuming diuretics . Metprolol dose reduced to 75mg per day due to resting HR 45-56/min. Physical Exam Narrative: General: No acute distress, AO x3 HEENT: PERRLA, pupils bilaterally equal and reactive, pallors not present Chest: Normal vesicular breath sounds, no added sounds, equal good air entry bilaterally CVS: S1-S2 regular, no murmurs, no tachycardia, no gallops, no rubs Abdomen: Soft, nontender, no organomegaly, bowel sounds present Neuro: No focal deficits, no facial deformity, AO x3, power 5/5 in all limbs Urinary Catheter Management: Ozuna: Cath Placed During This Visit: yes Reason for Continuing Indwelling Catheter: Acute Urinary Retention or Obstruction Urinary Catheter Date of Insertion: 10/17/22 Discharge Data Studies Completed and Pending Completed Studies During Hospitalization Category Date Time Status XR chest 1V portable [id number] Stat Exams 10/17/22 13:26 Completed US renal BI* [id number] Stat Ultrasound 10/17/22 17:11 Completed Radiology Impressions Chest X-Ray 10/17/22 13:26 IMPRESSION: 1. No acute cardiopulmonary finding. Renal Ultrasound 10/17/22 17:11 IMPRESSION: 1. Moderate right hydronephrosis, probably secondary to markedly enlarged urinary bladder. 2. Mild left hydronephrosis, probably secondary to markedly enlarged urinary bladder.. 3. Large 15.7 x 15.2 x 21.0 cm urinary bladder with estimated volume 2627 cc. 4. No medical renal disease. Laboratory Results WBC 4.7 10^3/uL (4.0-10.0) 10/21/22 04:31 RBC 3.22 10^6/uL (4.1-5.3) L 10/21/22 04:31 Hgb 7.7 g/dL (11.7-16.6) L 10/21/22 04:31 Hct 25.2 % (42.0-52.0) L 10/21/22 04:31 MCV 78.3 fl (80-94) L 10/21/22 04:31 MCH 23.9 pg (28.0-34.0) L 10/21/22 04:31 MCHC 30.6 g/dL (30.0-36.0) 10/21/22 04:31 RDW 18.5 % (12.1-15.1) H 10/21/22 04:31 Plt Count 169 10^3/cmm (130-400) 10/21/22 04:31 MPV 9.2 fL (7.4-10.4) 10/21/22 04:31 Neut % (Auto) 60.7 % 10/21/22 04:31 Lymph % (Auto) 30.1 % 10/21/22 04:31 Maries % (Auto) 6.2 % 10/21/22 04:31 Eos % (Auto) 1.3 % 10/21/22 04:31 Baso % (Auto) 0.2 % 10/21/22 04:31 Neut # (Auto) 2.85 10^3/uL (1.8-7.7) 10/21/22 04:31 Lymph # (Auto) 1.4 10^3/uL (0.8-4.8) 10/21/22 04:31 Maries # (Auto) 0.3 10^3/uL (0.2-0.9) 10/21/22 04:31 Eos # (Auto) 0.1 10^3/uL (0.0-0.8) 10/21/22 04:31 Baso # (Auto) 0.0 10^3/uL (0.0-0.1) 10/21/22 04:31 Nucleated RBC % (auto) 0 % 10/21/22 04:31 Nucleated RBCs # 0.0 /100WBC 10/21/22 04:31 Sodium 137 mmol/L (136-145) 10/22/22 04:15 Potassium 3.0 mmol/L (3.5-5.1) L 10/22/22 04:15 Chloride 100 mmol/L (98-107) 10/22/22 04:15 Carbon Dioxide 23 mmol/L (22-29) 10/22/22 04:15 Anion Gap 17.0 (5-19) 10/22/22 04:15 BUN 7 mg/dL (8-23) L 10/22/22 04:15 Creatinine 0.5 mg/dL (0.7-1.2) L 10/22/22 04:15 GFR Calculation Not Reportable 10/22/22 04:15 Glucose 100 mg/dL (65-115) 10/22/22 04:15 Calculated Osmolality 298 mOsm/kg (285-295) H 10/20/22 04:18 Calcium 8.1 mg/dL (8.5-10.5) L 10/22/22 04:15 Phosphorus 2.0 mg/dL (2.5-4.5) L 10/22/22 04:15 Magnesium 1.8 mg/dL (1.7-2.3) 10/22/22 04:15 Iron 11 ug/dL (59-158) L 10/18/22 04:43 TIBC 170 mcg/dl 10/18/22 04:43 % Saturation 6.4 % (20-50) L 10/18/22 04:43 Unsat Iron Binding 159 ug/dL (112-347) 10/18/22 04:43 Ferritin 927 ng/mL (30-400) H 10/18/22 04:43 Total Bilirubin 0.3 mg/dL (0.15-1.2) 10/20/22 04:18 AST 16 U/L (0-40) 10/20/22 04:18 ALT 11 U/L (0-41) 10/20/22 04:18 Alkaline Phosphatase 63 U/L (40-130) 10/20/22 04:18 Troponin T Gen 5 ng/L 35 ng/L (0-15) H 10/17/22 13:09 NT-Pro-B Natriuret Pep 2626 pg/mL (0-450) H 10/17/22 13:09 Total Protein 5.5 g/dL (6.6-8.7) L 10/20/22 04:18 Albumin 2.6 g/dL (3.5-5.2) L 10/22/22 04:15 Globulin 3.0 g/dL (1.3-4.6) 10/20/22 04:18 25-OH Vitamin D Total 10 ng/mL (30-100) L 10/18/22 04:43 Ur Random Sodium 58 mmol/L 10/17/22 21:32 Ur Random Potassium 23 mmol/L 10/17/22 21:32 Ur Random Chloride 53 mmol/L 10/17/22 21:32 Ur Random Urea Nitrogn 202 mg/dL 10/17/22 21:32 Urine Creatinine 37 mg/dL (39-259) L 10/17/22 21:32 Blood Type A Positive 10/18/22 16:06 Rho(D) Type Positive 10/18/22 16:06 Antibody Screen Negative 10/18/22 16:06 Crossmatch See Detail 10/18/22 16:06 Vitals Last Vital Signs Temp 98.6 F 10/22/22 07:38 Pulse 55 L 10/22/22 07:38 Resp 16 10/22/22 07:38 BP 127/71 10/22/22 07:38 Pulse Ox 97 10/22/22 07:38 O2 Del Method Room Air 10/22/22 07:38 O2 Flow Rate 2 10/21/22 20:00 Discharge Plan Discharge Patient Disposition: Xfer SNF Condition: Stable Prescriptions: New tamsulosin 0.4 mg Capsule 0.4 mg PO DAILY 30 Days Qty: 30 2RF Continued acetaminophen [Tylenol Extra Strength] 500 mg tablet 500 mg PO Q6H PRN (Reason: Pain) rosuvastatin [Crestor] 40 mg tablet 40 mg PO DAILY 90 Days Qty: 90 1RF allopurinol 300 mg tablet 300 mg PO DAILY Qty: 90 3RF fenofibrate nanocrystallized 145 mg tablet 145 mg PO DAILY Qty: 90 1RF nystatin 100,000 unit/gram powder 1 applic TOPICAL DAILY Qty: 3 2RF amlodipine 5 mg tablet 5 mg PO BID Qty: 180 1RF mesalamine [Delzicol] 400 mg capsule (with del rel tablets) 800 mg PO BID Qty: 360 1RF potassium chloride [Klor-Con M20] 20 mEq tablet,ER particles/crystals 40 meq PO BID 30 Days Qty: 120 0RF levothyroxine 50 mcg capsule 50 mcg PO DAILY Qty: 90 1RF Changed metoprolol succinate 100 mg tablet extended release 24 hr 75 mg PO DAILY 30 Days Qty: 30 0RF Held Lasix 40 mg tablet 40 mg PO BID Qty: 60 0RF Hold Instructions: Resume on 10/29/22. please reassess at SNF Discontinued lisinopril 30 mg tablet 30 mg PO BID Qty: 180 1RF meloxicam 7.5 mg tablet 7.5 mg PO DAILY Qty: 90 1RF Discharge Orders: Discharge Order (Routine); Ordered 10/22/22 Ordered By: Carissa King Referrals: Mariusz Dimas [Referring] - 2 weeks Harris Nugent MD [Primary Care Provider] - 7-10 days Discharge Diet: Usual diet Discharge Activity: Resume usual activity Activity Restrictions/Additional Instructions: Dr. Vee?MD [facility] at [address],[address] Tel:? tel:[phone] Discharge Attestations Time Spent in Discharge Care*: greater than 30 min Quality Metrics Clinical Quality Measures [ No reported AMI, CVA or VTE this stay] Coding Level of Care Code Acute Code for Chg Fwd Diagnoses Acute kidney injury N17.9 Anemia D64.9 Hypokalemia E87.6 Urinary retention R33.9 Diastolic dysfunction I51.89 Gout M10.9 Gout etiology: unspecified cause Gout site: unspecified site Crohn's disease K50.90 Essential (primary) hypertension I10 Hypothyroid E03.9 Hypothyroidism type: acquired
[2022-10-22] MEDS: fenofibrate 145 mg Tablet PO (09:56)
[2022-10-22] MEDS: levothyroxine 50 mcg Tablet PO (09:56)
[2022-10-22] MEDS: tamsulosin 0.4 mg Capsule PO (09:56)
[2022-10-22] MEDS: potassium chloride ER 20 mEq Tablet 40 MEQ PO (09:56)
[2022-10-22] MEDS: heparin 5,000 unit/mL INJ 1 mL 5000 UNIT SUBCUT (09:57)
[2022-10-22] MEDS: metoprolol succinate ER (24 HR) 100 mg Tablet PO (10:01)
--- NOTE | 2022-10-22 10:53 | PC.SOCIAL ---
IMM Update pg 2 of IMM updated and reviewed w/ patient. Copy provided and Copy in chart dated and initialed.
[2022-10-22 10:57] VITALS: BP 124/77; PULSE 62; RESP 18; TEMP 36.4; O2SAT 100
--- NOTE | 2022-10-22 11:22 | PM.PN ---
Subjective Subjective: No new complaints Medications: Medication Review Details: Medications reviewed Vitals/I&O/Wt Last Vital Signs Temp 97.5 F L 10/22/22 10:57 Pulse 62 10/22/22 10:57 Resp 18 10/22/22 10:57 BP 124/77 10/22/22 10:57 Pulse Ox 100 10/22/22 10:57 O2 Del Method Room Air 10/22/22 10:57 O2 Flow Rate 2 10/21/22 20:00 10/21/22 10/22/22 10/22/22 22:59 06:59 14:59 Intake Total 505 / 1105 360 / 360 Output Total 1300 / 2400 1407 / 3807 1400 / 1400 Balance -795 / -1295 -1407 / -2702 -1040 / -1040 Weight last 48 hrs Weight 74.559 kg Weight 75.778 kg Physical Exam Narrative: Patient awake, no acute distress, HEENT, PERRLa S1 S2 RRR per report Clear atif per report No edema Urinary Catheter Management: Summers: Cath Placed During This Visit: yes Reason for Continuing Indwelling Catheter: Acute Urinary Retention or Obstruction Urinary Catheter Date of Insertion: 10/17/22 Data 10/21/22 04:31 10/22/22 04:15 A&P Assessment and plan (1) Acute kidney injury: 1. JOSE :Baseline Cr 0.3 about a month ago . Severe JOSE sec to onstruction likely , and Hemodynamic from intravascular volume depletion from severe anemia. Cr 8.0 on presentation - Summers catheter placed and Cr improved back to baseline -postobstructive polyuria improved 2. Severe anemia : s/p tranfusion 3. Metabolic acidosis : mild , improving 4. Hypokalemia : replete 5. h/o Diastolic CHF Plan per medicine Attestations Medical Necessity Statement*: per medicine Coding Level of Care Code Acute Code for [facility] Diagnoses Acute kidney injury N17.9
[2022-10-22 11:26] LABS: SARS Covid-2 Antigen negative (Negative)
[2022-10-22 11:34] VITALS: PULSE 66; O2SAT 99
== END 2022-10-22 12:45 | disposition skilled nursing facility (03) | DRG 682 ==
LOC: ER 18:10 → MEDSURG 18:41
PROVIDERS: Admitting Provider Internal Medicine; Emergency Provider Emergency Medicine; PCP Family Medicine; Visit Provider Student in an Organized Health Care Education/Training Program
DX: N17.9 Acute kidney failure, unspecified (principal); I50.33 Acute on chronic diastolic (congestive) heart failure; K50.90 Crohn's disease, unspecified, without complications; E87.20 Acidosis, unspecified; N13.8 Other obstructive and reflux uropathy; N40.1 Benign prostatic hyperplasia with lower urinary tract symptoms; I11.0 Hypertensive heart disease with heart failure; D64.9 Anemia, unspecified; R33.9 Retention of urine, unspecified; R35.89 Other polyuria; E03.9 Hypothyroidism, unspecified; E55.9 Vitamin D deficiency, unspecified; M10.9 Gout, unspecified; E87.6 Hypokalemia; G47.33 Obstructive sleep apnea (adult) (pediatric); E78.5 Hyperlipidemia, unspecified
CPT/HCPCS: 12345; 36415; 51702; 71045; 76770; 80053; 80069; 82306; 82436; 82575; 82728; 83540; 83550; 83735; 83880; 84100; 84133; 84300; 84484; 84540; 85025; 86850; 86900; 86920; 87426; 93005; 96372; 96374; 97110; 97116; 97161; 97530; 99285; J1644; J1756; J1940; J3475; J3480; J7799; P9016; Q3014

== ENCOUNTER → 2022-11-12 13:01 | Outpatient (BNVA) | payer MEDICARE, OTHER, SELFPAY | PROVIDERS: PCP Family Medicine; Visit Provider Internal Medicine | DX: I11.0 Hypertensive heart disease with heart failure (principal); I50.30 Unspecified diastolic (congestive) heart failure; E78.5 Hyperlipidemia, unspecified; Z79.899 Other long term (current) drug therapy; R07.9 Chest pain, unspecified; I50.9 Heart failure, unspecified | CPT/HCPCS: 36415; 80048; 93005; 99204 ==

== ENCOUNTER 2022-11-13 08:15 | Outpatient (CLI) | payer MEDICARE, OTHER, SELFPAY ==
--- NOTE | 2022-11-13 08:26 | US_ITS ---
WS: [id number] RENAL ULTRASOUND URINARY BLADDER ULTRASOUND HISTORY: OTHER OBSTRUCTIVE REFLUX UROPATHY COMPARISON: 10/17/2022 TECHNIQUE: 2-D and color Doppler imaging of the kidney submitted. Right kidney: 11.1 cm x 6.1 cm x 6.6 cm. Normal size kidney. Significant improvement in the hydronephrosis previously described on 10/17/2022. There is minimal splitting of the renal pelvis. Left kidney: 12.8 cm x 7.1 cm x 6.7 cm. Normal size kidney. Mild persistent hydronephrosis with only minimal improvement. Cyst mid kidney luigi sures 2.1 x 1.9 x 2.1 cm. There is a complex cystic mass posterior to the LEFT kidney measuring 3.3 x 2.4 x 4.2 cm without incr eased vascularity. Etiology is not apparent. Not definitely seen on the prior exam. Aorta: Normal. Urinary Bladder: Summers catheter in a nondistended bladder. Patient was unable to distend bladder for this examination. He voided just prior to the ultrasound. US/US renal BI with PV bladder IMPRESSION: 1. Nearly completely resolved hydronephrosis RIGHT kidney. 2. Continued mild hydronephrosis LEFT kidney. 3. Hypoechoic mass seen posterior to the LEFT kidney of uncertain etiology luigi suring 3.3 x 2.4 x 4.2 cm. Recommend follow-up CT abdomen and pelvis to evaluat e etiology. This was not present or identified on the prior renal ultrasound an d not explained by a CT from 2012.
== END 2022-11-13 08:16 | disposition home or self-care (01) ==
LOC: RAD 08:19
PROVIDERS: PCP Family Medicine; Visit Provider Nurse Practitioner Family
DX: N13.30 Unspecified hydronephrosis (principal); N28.89 Other specified disorders of kidney and ureter
CPT/HCPCS: 76770; 76857

== ENCOUNTER 2022-12-13 09:44 | Outpatient (CLI) | payer MEDICARE, OTHER, SELFPAY ==
--- NOTE | 2022-12-13 | ECG_ITS ---
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 Interpretive Statements NAME OF STUDY: LEXISCAN SESTAMIBI STRESS TEST INDICATION: [Chest Pain, ] Procedure: At the baseline, the blood pressure was 134/87 mmHg with a heart rate of 68 bpm. The electrocardiogram showed normal sinus rhythm, normal axis with normal ST and T's. The Lexiscan was infused over a period of 20 seconds. A total of 0.4 mg of Lexiscan was infused. The stress phase was continued for a total of 5 minutes. Heart rate was at the end of stress phase was 80 bpm and a blood pressure of 115/73 mmHg. The EKG at the peak infusion revealed normal sinus rhythm with no significant ST-T wave changes. Sestamibi was injected 20 seconds after the Lexiscan infusion. Blood pressure at the end of recovery phase was 111/75 mmHg with a heart rate of 80 bpm. Conclusion: 1. Normal EKG response to Lexiscan infusion 2. No Lexiscan induced chest pain or cardiac arrhythmia. 3. Normal blood pressure and heart rate response. 4. Sestamibi/sestamibi perfusion scan pending; see separate report. Electronically Signed On 12-14-2022 15:54:26 CDT by Patel Montilla M.D. [email or web address]
--- NOTE | 2022-12-13 10:22 | NMCV_ITS ---
NM santi perf SPECT r/s* [id number] Gregoria Esequiel Age: 77 Gender: M : 1945 Exam Date: 12/13/2022 11:27 Ordering Phys: Patel Montilla M.D ([email or web address]) Technologist: LARS Johnson Exam Location: [facility] Indications: CHEST PAIN STRESS TEST Please see separate stress [facility] for full findings IMAGE PROTOCOL Rest/Stress 1 Lexiscan Day Radiopharmaceutical Dose (mCi) Administration Site Administered by Rest: Tc-99m 11.0 IV LARS Gallardo Sestamibi Stress:Tc-99m 32.9 IV LARS Johnson Sestamirain Rest: 13-Dec-2022 60 Discovery 630 Stress: 13-Dec-2022 30 Discovery 630 0.4mg Lexiscan. Supine position only as patient was unable to lay prone. SPECT RESULTS Technical Quality: Excellent Raw Data Analysis: Normal Image Corrections: No attenuation or motion correction applied Summed Stress Score: 2 Summed Rest Score: 0 Summed Difference Score: 2 PERFUSION FINDINGS There is a small in size, partially reversible perfusion defect noted in the inferior and inferolateral walton. 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 FUNCTIONAL RESULTS (calculated via Gated SPECT) Stress Image LV EF (%): 69 Stress EDV (mL):119 TID: 0.89 Stress ESV (mL):37 FUNCTIONAL FINDINGS: There is normal left ventricular systolic function. IMPRESSIONS 1. 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 LV systolic function is normal Patel Montilla MD (Electronically Signed) Final Date: 13 December 2022 16:55 S
[2022-12-13 10:45] VITALS: BMI 21.7
[2022-12-13] MEDS: regadenoson 0.4 Mg/5 ml Syringe IVP (12:01)
[2022-12-13 12:20] VITALS: BP 110/73; PULSE 83
== END 2022-12-13 09:45 | disposition home or self-care (01) ==
LOC: CDL 09:45
PROVIDERS: PCP Family Medicine; Visit Provider Internal Medicine
DX: R07.9 Chest pain, unspecified (principal); I25.2 Old myocardial infarction
CPT/HCPCS: 36415; 78452; 93017; 96374; A9500; J2785

== ENCOUNTER 2022-12-21 13:47 | Outpatient (CLI) | payer MEDICARE, OTHER, SELFPAY ==
--- NOTE | 2022-12-21 13:56 | US_ITS ---
WS: [id number] RENAL ULTRASOUND HISTORY: BILATERAL HYDRONEPHROSIS COMPARISON: 11/13/2022 TECHNIQUE: 2-D and color Doppler imaging of the kidney submitted. Right kidney: 11.2 cm x 5.3 cm x 5.5 cm. Cortex: 1.5 cm Normal echogenicity with no hydronephrosis or mass. Left kidney: 11.6 cm x 4.8 cm x 7.2 cm. Cortex: 1.2 cm Normal size kidney. Cortical cyst. The largest in the mid kidney measures 2.2 x 1.9 x 1.7 cm. No serge d mass identified. No residual hydronephrosis. Aorta: Normal. Urinary Bladder: Summers catheter in the urinary bladder. There is debris layering in the urinary bladd er with a few septations. US/US renal BI* [id number] IMPRESSION: 1. No residual hydronephrosis. 2. No solid renal mass. Several benign cysts LEFT kidney. 3. Summers catheter in the urinary bladder.
== END 2022-12-21 13:48 | disposition home or self-care (01) ==
LOC: RAD 13:47
PROVIDERS: PCP Family Medicine; Visit Provider Urology
DX: N13.30 Unspecified hydronephrosis (principal); N17.9 Acute kidney failure, unspecified; Q61.02 Congenital multiple renal cysts
CPT/HCPCS: 76770